=== PATIENT | male | born 1960 | race Caucasian/White ===

== ENCOUNTER 2019-08-02 10:30 | Outpatient (CLI) | payer OTHER, SELFPAY ==
[2019-08-02 11:28] LABS: Alanine Aminotransferase 60 U/L (4-50); Albumin Level 4.8 g/dL (3.5-5.1); Alkaline Phosphatase 81 U/L (38-126); Aspartate Amino Transferase 44 U/L (17-59); Bilirubin,Total 0.6 mg/dL (0.2-1.3); Blood Urea Nitrogen 10 mg/dL (9-20); Calcium 9.4 mg/dL (8.4-10.2); Carbon Dioxide 28 mmol/L (22-30); Chloride 103 mmol/L (98-107); Cholesterol 176 mg/dL (0-200); Estimated Glomerular Filt Rate > 60; Glucose 106 mg/dL (75-110); HDL Direct 46 mg/dL; Potassium 4.1 mmol/L (3.4-5.0); Sodium 138 mmol/L (137-145); Triglycerides 145 mg/dL (<150)
[2019-08-02 11:39] LABS: LDL Cholesterol Direct 106 mg/dL
== END 2019-08-02 10:31 | disposition home or self-care (01) ==
PROVIDERS: PCP Internal Medicine; Visit Provider Internal Medicine Cardiovascular Disease
DX: E78.5 Hyperlipidemia, unspecified (principal)
CPT/HCPCS: 36415; 80053; 80061

== ENCOUNTER 2020-01-25 07:24 | Outpatient (RCR) | payer OTHER, SELFPAY ==
[2019-11-09 12:40] VITALS: BMI 31.4
== END 2020-02-07 23:59 | disposition home or self-care (01) ==
LOC: ANHWOC 07:24
PROVIDERS: PCP Internal Medicine; Visit Provider Internal Medicine
DX: L97.512 Non-pressure chronic ulcer of other part of right foot with fat layer exposed (principal)
CPT/HCPCS: 99201; 99211; 99212; 99213; G0463

== ENCOUNTER 2020-04-03 07:22 | Outpatient (RCR) | payer OTHER, SELFPAY | END 2020-06-03 08:22 | disposition home or self-care (01) | LOC: ANHWOC 07:22 | PROVIDERS: PCP Internal Medicine; Visit Provider Internal Medicine | DX: E11.621 Type 2 diabetes mellitus with foot ulcer (principal); L97.512 Non-pressure chronic ulcer of other part of right foot with fat layer exposed | CPT/HCPCS: 99211; G0463 ==

== ENCOUNTER 2020-04-03 13:35 | Outpatient (CLI) | payer OTHER, SELFPAY ==
[2020-04-03 14:24] LABS: Basophils Absolute Auto 0.1 K/mm3 (0.0-0.1); Basophils Percent Auto 0.9 % (0.2-1.2); Eosinophils Absolute Auto 0.1 K/mm3 (0-0.3); Eosinophils Percent Auto 1.5 % (0-4.4); Hematocrit 45.7 % (42.0-52.0); Hemoglobin 15.1 g/dL (14.0-18.0); Immature Granulocyte Absolute 0.06 K/mm3 (0.00-0.031); Immature Granulocyte Percent A 0.7 % (0-0.5); Lymphocytes Absolute Auto 1.29 K/mm3 (0.9-3.2); Mean Corpuscular Hemoglobin 30.1 pg (26-34); Mean Platelet Volume 10.5 fl (7.4-10.4); Monocytes Absolute Auto 0.8 K/mm3 (0.1-0.6); Monocytes Percent Auto 9.7 % (2.6-8.5); Neutrophils Absolute Auto 5.8 K/mm3 (1.3-6.7); Neutrophils Percent Auto 71.2 % (45.5-73.1); Platelet Count Result 235 k/mm3 (150-375); Red Blood Count 5.02 M/mm3 (4.6-6.20); White Blood Count 8.1 K/mm3 (4.5-10.0)
[2020-04-03 14:36] LABS: Creatinine Urine 91.7 mg/dL
[2020-04-03 14:37] LABS: Potassium 3.9 mmol/L (3.4-5.0)
[2020-04-03 14:44] LABS: Alanine Aminotransferase 47 U/L (4-50); Albumin Level 4.5 g/dL (3.5-5.1); Alkaline Phosphatase 75 U/L (38-126); Anion Gap 8 mmol/L (8-16); Aspartate Amino Transferase 38 U/L (17-59); Bilirubin,Total 0.5 mg/dL (0.2-1.3); Blood Urea Nitrogen 12 mg/dL (9-20); Carbon Dioxide 29 mmol/L (22-30); Chloride 103 mmol/L (98-107); Cholesterol 161 mg/dL (0-200); Estimated Glomerular Filt Rate > 60; Glucose 125 mg/dL (75-110); HDL Direct 35 mg/dL; Sodium 140 mmol/L (137-145); Triglycerides 367 mg/dL (<150)
[2020-04-03 14:49] LABS: LDL Cholesterol Direct 82 mg/dL
[2020-04-03 14:57] LABS: MALB Creatinine Ratio < 6.5 mg/g (0-30); Microalbumin Urine Random < 6.0 mg/L (0-16.7)
[2020-04-03 15:10] LABS: Prostate Specific Antigen 0.5 ng/mL (< OR = 4.0)
[2020-04-03 15:44] LABS: Folic Acid 11.7 ng/mL (2.76->20)
[2020-04-03 15:51] LABS: Vitamin D 25 Hydroxy < 12.8 ng/mL
== END 2020-04-03 13:36 | disposition home or self-care (01) ==
PROVIDERS: PCP Internal Medicine; Visit Provider Internal Medicine
DX: E78.5 Hyperlipidemia, unspecified (principal); F41.9 Anxiety disorder, unspecified; G62.9 Polyneuropathy, unspecified; I10 Essential (primary) hypertension; I48.0 Paroxysmal atrial fibrillation; R73.01 Impaired fasting glucose; Z79.899 Other long term (current) drug therapy; Z12.5 Encounter for screening for malignant neoplasm of prostate
CPT/HCPCS: 36415; 80053; 80061; 82043; 82306; 82607; 82746; 83036; 84153; 84443; 85025; G0103

== ENCOUNTER 2020-04-18 11:40 | Outpatient (CLI) | payer OTHER, SELFPAY | END 2020-04-18 11:41 | disposition home or self-care (01) | LOC: ANHCOVIDVC 11:41 | PROVIDERS: PCP Internal Medicine | DX: Z23 Encounter for immunization (principal) | CPT/HCPCS: 0001A; 91300 ==

== ENCOUNTER 2020-05-09 11:35 | Outpatient (CLI) | payer OTHER, SELFPAY | END 2020-05-09 11:36 | disposition home or self-care (01) | LOC: ANHCOVIDVC 11:35 | PROVIDERS: PCP Internal Medicine | DX: Z23 Encounter for immunization (principal) | CPT/HCPCS: 0002A; 91300 ==

== ENCOUNTER 2020-08-30 13:03 | Outpatient (CLI) | payer OTHER, SELFPAY ==
[2020-08-30 13:38] LABS: Alanine Aminotransferase 32 U/L (4-50); Albumin Level 4.3 g/dL (3.5-5.1); Alkaline Phosphatase 81 U/L (38-126); Anion Gap 8 mmol/L (8-16); Aspartate Amino Transferase 29 U/L (17-59); Bilirubin,Total 0.9 mg/dL (0.2-1.3); Blood Urea Nitrogen 12 mg/dL (9-20); Calcium 9.3 mg/dL (8.4-10.2); Carbon Dioxide 30 mmol/L (22-30); Chloride 100 mmol/L (98-107); Cholesterol 159 mg/dL (0-200); Estimated Glomerular Filt Rate > 60; Glucose 113 mg/dL (75-110); HDL Direct 39 mg/dL; Potassium 3.8 mmol/L (3.4-5.0); Sodium 138 mmol/L (137-145); Triglycerides 159 mg/dL (<150)
[2020-08-30 13:48] LABS: LDL Cholesterol Direct 81 mg/dL
[2020-08-30 14:05] LABS: Creatinine Urine 80.2 mg/dL
[2020-08-30 14:10] LABS: MALB Creatinine Ratio < 7.5 mg/g (0-30); Microalbumin Urine Random < 6.0 mg/L (0-16.7)
== END 2020-08-30 13:04 | disposition home or self-care (01) ==
LOC: ANHLAB 13:05
PROVIDERS: PCP Internal Medicine; Visit Provider Internal Medicine
DX: E78.2 Mixed hyperlipidemia (principal); I10 Essential (primary) hypertension; R73.01 Impaired fasting glucose
CPT/HCPCS: 36415; 80053; 80061; 82043; 83036

== ENCOUNTER 2020-10-25 07:18 | Outpatient (RCR) | payer OTHER, SELFPAY ==
[2020-10-11 12:00] VITALS: BMI 31.3
== END 2020-12-18 13:43 | disposition home or self-care (01) ==
LOC: ANHWOC 07:18
PROVIDERS: PCP Internal Medicine; Visit Provider Internal Medicine
DX: L89.90 Pressure ulcer of unspecified site, unspecified stage (principal)
CPT/HCPCS: 99212; 99213; A9270; G0463

== ENCOUNTER 2020-12-02 12:01 | Outpatient (CLI) | payer OTHER, SELFPAY ==
[2020-12-02 12:26] LABS: Basophils Percent Auto 0.6 % (0.2-1.2); Eosinophils Absolute Auto 0.1 K/mm3 (0-0.3); Hemoglobin 14.4 g/dL (14.0-18.0); Immature Granulocyte Absolute 0.03 K/mm3 (0.00-0.031); Immature Granulocyte Percent A 0.4 % (0-0.5); Lymphocytes Absolute Auto 1.28 K/mm3 (0.9-3.2); Lymphocytes Percent Auto 18.2 % (18.3-44.2); Mean Corpuscular HGB Conc 32.7 g/dl (32-36); Mean Corpuscular Hemoglobin 29.6 pg (26-34); Mean Corpuscular Volume 90.5 fl (80-100); Mean Platelet Volume 10.3 fl (7.4-10.4); Monocytes Absolute Auto 0.8 K/mm3 (0.1-0.6); Monocytes Percent Auto 10.7 % (2.6-8.5); Neutrophils Absolute Auto 4.8 K/mm3 (1.3-6.7); Neutrophils Percent Auto 68.1 % (45.5-73.1); Platelet Count Result 226 k/mm3 (150-375); Red Blood Count 4.86 M/mm3 (4.6-6.20); Red Cell Distribution Width 12.2 % (11.5-14.5)
[2020-12-02 13:25] LABS: Erythrocyte Sedimentation Rate 17 mm/hr (0-20)
== END 2020-12-02 12:02 | disposition home or self-care (01) ==
LOC: ANHLAB 12:02
PROVIDERS: PCP Internal Medicine; Visit Provider Podiatrist Foot & Ankle Surgery
DX: L03.032 Cellulitis of left toe (principal)
CPT/HCPCS: 36415; 85025; 85652

== ENCOUNTER 2021-01-09 18:06 | Observation (INO) | payer OTHER, SELFPAY ==
--- NOTE | ~2021-01-09 | XR_ITS ---
XR foot RT min 3V 01/09/2021 18:37 Indication: Wound to middle of the bottom of the right foot Procedure: 4 views right foot Comparison: 02/10/2018 Findings: There is severe deformity of the right midfoot with chronic fracture deformities and disloc ation of the first, second and third metatarsals. There is are extensive surgical changes consistent with fusion of the midfoot and proximal first, second and third metatarsals. Mild plantar soft tissue swelling. No foreign bodies. There is rocker-bottom foot. No acute fracture or traumatic malalignmen t is identified. There are degenerative calcaneal enthesophytes. Impression: 1: Severe chronic deformity of the right midfoot as well as the first, second and third metatarsals s tatus post surgical fusion. Reviewed, dictated and finalized at location A. ICULTURAL AGENT Impression: 1: Severe chronic deformity of the right midfoot as well as the first, second a nd third metatarsals status post surgical fusion.
--- NOTE | ~2021-01-09 | CT_ITS ---
EXAMINATION: CT foot RT wo con DATE: 01/10/2021 11:06 INDICATION: Cellulitis at the right foot with wound at the plantar aspect of the mid right foot TECHNIQUE: High resolution computed tomography (CT) of the right foot was performed without intraveno us contrast. Additional sagittal and coronal reconstructions were performed. Automated exposure contr ol and iterative reconstruction technique were employed. The dose-length product was 376.75 mGy-cm. COMPARISON: Radiographs dated 01/09/2021 FINDINGS: Chronic healed fracture deformities at the diaphyses of the second and third metatarsals with exubera nt callus formation and solid osseous bridging between the 2 fractures. No acute fractures. Failed multiple joint midfoot arthrodesis with dorsal plate and screw fixation spanning the first, se cond, third and fourth tarsal metatarsal joints. There are fractured screws at each of the plain scre w fixations. This involves the proximal most screw of the first tarsal metatarsal fixation which has backed out, the 2 more distal screws at the base of the second metatarsal for the second tarsal metat arsal fixation, the proximal and distal screws at the third tarsal metatarsal fixation and the distal and 2 proximal screws at the fourth tarsal metatarsal fixation. Each of the tarsal metatarsal joints remains unfused. There does appear to be solid osseous fusion between the medial and mid cuneiforms. There is a blisterlike likely fluid collection at the skin surface at the plantar aspect of the midfo ot deep to the cuboid which measures 3.0 x 4.3 x 0.8 cm in maximal dimensions. The collection remains separate from the cuboid by approximately 9 mm of soft tissue with an intact appearing superficial f ascial plane of the plantar aponeurosis. No acute appearing cortical erosion, osteolysis or increased lucency surrounding the screw fragments to suggest osteomyelitis. No soft tissue gas to suggest necr otizing fasciitis. Mild polyarticular osteoarthritis at the majority of the joints of the right foot and ankle not involved with the attempted arthrodesis. Heterotopic ossification at the course of the anterior talofibular and calcaneofibular ligaments as well as the deltoid ligament likely sequela of chronic ankle sprains. IMPRESSION: 1. 2.0 x 4.3 x 0.8 cm superficial blisterlike fluid collection at the plantar aspect of the midfoot. No evident associated osteomyelitis. 2. Failed attempted midfoot arthrodesis with fracture of fixation screws associated with faint screw fixations across the still ununited first-fourth tarsal metatarsal joints. Reviewed, dictated and finalized at location A. [employer] IMPRESSION: 1. 2.0 x 4.3 x 0.8 cm superficial blisterlike fluid collection at the plantar a spect of the midfoot. No evident associated osteomyelitis. 2. Failed attempted midfoot arthrodesis with fracture of fixation screws associ ated with faint screw fixations across the still ununited first-fourth tarsal m etatarsal joints.
[2021-01-09 18:17] VITALS: BP 147/94; PULSE 88; RESP 18; TEMP 36.8; O2SAT 100
[2021-01-09 19:06] LABS: Basophils Percent Auto 0.4 % (0.2-1.2); Hematocrit 43.1 % (42.0-52.0); Hemoglobin 14.3 g/dL (14.0-18.0); Immature Granulocyte Absolute 0.05 K/mm3 (0.00-0.031); Immature Granulocyte Percent A 0.4 % (0-0.5); Lymphocytes Absolute Auto 0.61 K/mm3 (0.9-3.2); Lymphocytes Percent Auto 5.5 % (18.3-44.2); Mean Corpuscular HGB Conc 33.2 g/dl (32-36); Mean Corpuscular Hemoglobin 30.2 pg (26-34); Mean Corpuscular Volume 90.9 fl (80-100); Mean Platelet Volume 10.7 fl (7.4-10.4); Monocytes Percent Auto 9.2 % (2.6-8.5); Neutrophils Absolute Auto 9.4 K/mm3 (1.3-6.7); Neutrophils Percent Auto 84.5 % (45.5-73.1); Platelet Count Result 195 k/mm3 (150-375); Red Blood Count 4.74 M/mm3 (4.6-6.20); Red Cell Distribution Width 12.5 % (11.5-14.5); White Blood Count 11.1 K/mm3 (4.5-10.0)
[2021-01-09 19:17] LABS: INR 1.1; Lactic Acid Reflex 1.7 mmol/L (0.7-2.1)
[2021-01-09 19:18] LABS: Partial Thromboplastin Time 36.6 SECONDS (22.3-36.8)
[2021-01-09 19:19] LABS: Alanine Aminotransferase 32 U/L (4-50); Albumin Level 4.6 g/dL (3.5-5.1); Alkaline Phosphatase 89 U/L (38-126); Anion Gap 10 mmol/L (8-16); Aspartate Amino Transferase 46 U/L (17-59); Bilirubin,Total 1.5 mg/dL (0.2-1.3); Blood Urea Nitrogen 11 mg/dL (9-20); CRP 3.6 mg/dL (<1.0); Calcium 9.1 mg/dL (8.4-10.2); Carbon Dioxide 23 mmol/L (22-30); Chloride 101 mmol/L (98-107); Estimated CRCL calculation 147 ml/min; Estimated Glomerular Filt Rate > 60; Glucose 132 mg/dL (65-110); Potassium 4.1 mmol/L (3.4-5.0); Sodium 134 mmol/L (137-145)
--- NOTE | 2021-01-09 19:33 | ED.GENADULT ---
HPI - General Adult General Chief complaint: Wound/Laceration Stated complaint: wound on foot Time Seen by Provider: 01/09/21 18:12 Source: RN notes reviewed History of Present Illness HPI narrative: Patient presents emergency department from home for right foot wound. Patient states that he began to notice the wound yesterday and progressed today no swelling on the plantar aspect of the foot with erythema extending up the side of the foot towards the ankle but he states that foot has had surgery in the past at [facility] he denies any known trauma or injury states he did have subjective fevers yesterday and today denies any nausea vomiting or any other symptoms Related Data Home Medications Medication Instructions Recorded Confirmed aspirin 325 mg tablet 325 mg PO DAILY 05/16/19 10/11/20 oxycodone-acetaminophen 5 mg-325 1 tablet PO Q6H PRN 08/02/19 10/11/20 mg tablet gabapentin 400 mg capsule 600 mg PO TID PRN cap 07/16/20 10/11/20 multivitamin 1 tablet PO DAILY 07/16/20 10/11/20 naldemedine [Symproic] mg 01/09/21 Allergies Allergy/AdvReac Type Severity Reaction Status Date / Time No Known Allergies Verified 01/09/21 18:25 Review of Systems Review of Systems: Gen.: See HPI ENT: Denies congestion Respiratory: Denies shortness of breath or cough CV: Denies chest pain or palpitations GI: Denies abdominal pain nausea, emesis Musculoskeletal: Reports right foot pain Neuro: Denies numbness, tingling, weakness or focal weakness Skin: See HPI Except as documented, all other systems reviewed and negative COUNT INCLUDES THE [facility] Past Medical History Medical History (Updated 01/09/21 @ 20:28 by David Lei DO) Charcot's joint of right foot, non-diabetic Dyslipidemia Family History Family History Sibling Diabetes mellitus Family history of Alzheimer's disease, Onset Age: 60 Mother Patient's mother is , Onset Age: 53 Family history of lymphoma Social History Social History Second hand tobacco smoke exposure: No Alcohol intake: never Gender identity (if verbalized by the patient): Male Exam Narrative: APPEARANCE: No acute distress, nontoxic, resting in bed EYES: EOMI HEENT: Normocephalic, atraumatic, OMM RESPIRATORY: No respiratory distress Clear to auscultation bilaterally with no rhonchi wheezing or rales. CARDIOVASCULAR: Regular rate and rhythm without murmurs rubs or gallops. ABDOMINAL: Soft, nontender, nondistended, no rebound or guarding MUSCULOSKELETAl: Moves all extremities. No clubbing, cyanosis right foot with Charcot deformity there is a circular wound over the base of the foot that is tender with mild fluctuance no drainage with erythema extending from the base of the foot up into the medial foot to the ankle dorsalis pedis pulse 2+ neurovascular intact NEURO: Awake and alert. Following commands, speech normal, no focal deficits SKIN:: Warm, dry. No rashes lesions or abrasions PSYCHIATRIC: Normal affect/mood, Course Course Emergency Course: Discussed with Dr. Arvizu presentation work-up agrees with consult at this time Discussed with Dr. Monique presentation work-up agrees with admission Discussed with patient and family results of workup and diagnosis. Discussed need for admission. Patient and family understand and agree to current treatment plan Vital Signs Vital signs: Vital Signs Temperature 98.2 F 01/09/21 18:17 Pulse Rate 88 01/09/21 18:17 Respiratory Rate 18 01/09/21 18:17 Blood Pressure 147/94 H 01/09/21 18:17 Pulse Oximetry 100 01/09/21 18:17 Temperature 98.2 F 01/09/21 18:17 Pulse Rate 88 01/09/21 18:17 Respiratory Rate 18 01/09/21 18:17 Blood Pressure 147/94 H 01/09/21 18:17 Pulse Oximetry 100 01/09/21 18:17 Medical Decision Making Vital Signs Vital Signs: Vital Signs Temperature 98.2 F
[2021-01-09 19:39] LABS: Erythrocyte Sedimentation Rate 18 mm/hr (0-20)
[2021-01-09 20:50] VITALS: BP 146/74; PULSE 74; RESP 16; O2SAT 99
--- NOTE | 2021-01-09 21:00 | ADMGEN ---
This patient, Richi Gunderson, was admitted to Medical Room 340-01. Patient/family oriented to hospital policies and general routines including ID bracelet, bed and alarms, visiting hours, pain management, procedures, bathroom and other care routines, personal items, smoking policy, room service/diet, and visiting hours. Information on how to activate the Rapid Response Team has been discussed. Patient/Family are encouraged to report perceived risks to care and to ask questions if they do not understand what they are told or what they should do.
[2021-01-09 21:09] VITALS: BP 168/91; PULSE 72; RESP 17; TEMP 36.6; O2SAT 99
[2021-01-09] MEDS: SODIUM CHLORIDE 0.9% IV 1,000 ML 125 ML IV CONT (21:09)
[2021-01-09 21:10] VITALS: BMI 31.4
[2021-01-09 21:12] VITALS: BP 168/71; PULSE 72; RESP 17; TEMP 36.6; O2SAT 99
[2021-01-09 21:38] VITALS: PULSE 70; O2SAT 99
--- NOTE | 2021-01-09 22:04 | PM.IMHP ---
H&P: HPI History of Present Illness Date/Time: 01/09/21 22:04 Chief Complaint: Right foot swelling Narrative: This is a 60-year-old male with past medical history significant for Charcot neuropathy, alcohol abuse patient has been sober for over a year now, dyslipidemia, hypertension, peripheral neuropathy. Patient presented to emergency room due to right foot swelling, redness patient denies any pain due to his neuropathy but did feel some discomfort, this was 1st started on Wednesday and has progressively gotten worse over the course or through the last 48 hours, no discharge or wounds or foul smell. Denies any fevers, any rigors, any chills, his also have poor appetite for the last day or so has not been able to eat anything. He denies any cough, any sputum production, shortness of breath, nausea, vomiting or diarrhea or abdominal pain, no calf pain ,no shortness of breath ,no PND ,no orthopnea. Preliminary workup was significant for x-ray of the foot reported as severe chronic deformity of the right midfoot as well as the first, second and third metatarsals status post surgical fusion. Decision has been made to admit the patient for further evaluation, management and treatment. Review of Systems Review of Systems: Right foot swelling, redness, of 2 days duration that has progressively gotten worse. Constitutional: Constitutional: Denies chills, Denies fatigue, Denies fever(s), Denies frequent falls, Denies lethargy, Denies malaise, Reports poor appetite and Denies weakness Eyes: Eyes: Denies change in vision ENT: Denies dysphagia, Denies vertigo, Denies dizziness, Denies nasal congestion, Denies nasal discharge, Denies nasal obstruction and Denies odynophagia Cardiovascular: Cardiovascular: Denies irregular heart rhythm, Denies claudication, Denies lightheadedness, Denies radiating jaw, neck or arm pain, Denies palpitations, Denies dyspnea, Denies dyspnea on exertion and Denies orthopnea Respiratory: Respiratory: Denies cough, Denies excessive phlegm production, Denies dyspnea, Denies dyspnea on exertion and Denies wheezing Gastrointestinal: Gastrointestinal: Denies abdominal pain, Denies dyspepsia, Denies heartburn, Denies nausea and Denies vomiting Genitourinary: Genitourinary: Reports no additional male genitourinary complaints, Reports as per HPI and Denies dysuria Musculoskeletal: Comments: Right foot swelling and redness Integumentary/Breasts: Skin/Breast: Reports swelling, Reports change in pigmentation, Denies rash and Reports skin swelling Neurologic: Denies vertigo, Denies syncope, Denies frequent falls, Denies focal weakness, Denies Sensory deficit (Neuro) and Reports paresthesias Psychiatric: Psychiatric: Reports no additional psychiatric complaints and Reports as per HPI Endocrine: Endocrine: Reports no additional endocrine complaints and Reports as per HPI Hematologic/Lymphatic: Hematologic/Lymphatic: Reports no additional hematologic/lymphatic complaints and Reports as per HPI Allergic/Immunologic: Allergic/Immunologic: Reports no additional allergic/immunologic complaints and Reports as per HPI PMFSH Past Medical History Medical History (Updated 01/09/21 @ 20:28 by David Lei DO) Charcot's joint of right foot, non-diabetic Dyslipidemia Family History Family History Sibling Diabetes mellitus Family history of Alzheimer's disease, Onset Age: 60 Mother Patient's mother is , Onset Age: 53 Family history of lymphoma Social History Social History Smoking status: Never smoker Second hand tobacco smoke exposure: No Alcohol intake: former Substance use: never Gender identity (if verbalized by the patient): Male Spiritual care concerns: No Meds Home Medications and Allergies Home Medications Medication Instructions Recorded Confirmed Type aspirin 325 mg tablet 325
[2021-01-09] MEDS: ZOLPIDEM TARTRATE (*CRX) 5 MG TABLET 10 MG PO (23:08)
[2021-01-09] MEDS: oxyCODONE/ACETAMINOPHEN (*CRX) 5-325 MG TABLET 1 TABLET PO (23:11)
[2021-01-10 00:20] VITALS: RESP 16; O2SAT 99
[2021-01-10 02:20] VITALS: RESP 18; O2SAT 98
[2021-01-10 03:47] VITALS: BP 133/88; PULSE 70; RESP 16; TEMP 36.4; O2SAT 99
[2021-01-10 06:27] LABS: Basophils Percent Auto 0.5 % (0.2-1.2); Eosinophils Absolute Auto 0.1 K/mm3 (0-0.3); Eosinophils Percent Auto 0.6 % (0-4.4); Hemoglobin 13.4 g/dL (14.0-18.0); Immature Granulocyte Absolute 0.03 K/mm3 (0.00-0.031); Immature Granulocyte Percent A 0.3 % (0-0.5); Lymphocytes Absolute Auto 1.15 K/mm3 (0.9-3.2); Mean Corpuscular HGB Conc 32.7 g/dl (32-36); Mean Corpuscular Hemoglobin 29.6 pg (26-34); Mean Corpuscular Volume 90.5 fl (80-100); Mean Platelet Volume 10.7 fl (7.4-10.4); Monocytes Percent Auto 11.8 % (2.6-8.5); Neutrophils Absolute Auto 6.5 K/mm3 (1.3-6.7); Neutrophils Percent Auto 73.8 % (45.5-73.1); Platelet Count Result 189 k/mm3 (150-375); Red Blood Count 4.53 M/mm3 (4.6-6.20); Red Cell Distribution Width 12.7 % (11.5-14.5); White Blood Count 8.9 K/mm3 (4.5-10.0)
[2021-01-10 06:39] LABS: Anion Gap 7 mmol/L (8-16); Blood Urea Nitrogen 9 mg/dL (9-20); Carbon Dioxide 28 mmol/L (22-30); Chloride 104 mmol/L (98-107); Estimated CRCL calculation 125 ml/min; Estimated Glomerular Filt Rate > 60; Glucose 115 mg/dL (65-110); Potassium 3.7 mmol/L (3.4-5.0); Sodium 139 mmol/L (137-145)
[2021-01-10 09:55] VITALS: PULSE 86
[2021-01-10] MEDS: METOPROLOL SUCCINATE EXT REL 25 MG TABCR PO (09:55)
[2021-01-10] MEDS: MULTIVITAMINS THERAPEUTIC TAB (*BKC) 1 TABLET PO (09:55)
[2021-01-10] MEDS: ENOXAPARIN 40 MG/0.4 ML SYRINGE SUB-Q (09:55)
[2021-01-10] MEDS: ROSUVASTATIN 10 MG TABLET 20 MG PO (09:55)
--- NOTE | 2021-01-10 10:09 | PM.IMPN ---
Progress Note: A&P Assessment and Plan (1) Cellulitis of foot, right: Code(s): L03.115 - Cellulitis of right lower limb Status: Acute Assessment and Plan: Patient is a 60-year-old man with a history of Charcot foot with neuropathy, who presented to the emergency room with increased redness, swelling and pain to his right foot which began evening of the . He developed symptoms of fevers and chills decided to come to the emergency room for further evaluation. Initial vitals showed blood pressure 147/94, heart rate 88, afebrile, normal oxygenation on room air. Initial labs showed leukocytosis at 11,100, with elevated neutrophils at 84%. Normal coag panel. Slight hyponatremia at 134. Renal function 0.6, BUN 11, slight elevation of glucose at 132. Normal lactic acid. CRP elevated 3.6. Foot x-ray was obtained showing Severe chronic deformity of the right midfoot as well as the first, second and third metatarsals status post surgical fusion. The patient was admitted with cellulitis of right foot and started on broad-spectrum antibiotics which included IV Zosyn and vancomycin #1 Patient has noticed improvement of his symptoms, but still having warmth and erythema Surgery was consulted and appreciate their input CT foot was ordered and pending results Blood cultures pending at this time Continue with IV antibiotics, pain control, and fever control as needed (2) Charcot's joint of right foot, non-diabetic: Code(s): M14.671 - Charcot's joint, right ankle and foot Status: Acute Assessment and Plan: Follow-up with Podiatry in the outpatient setting, he sees 1 already and was just there on Wednesday01/06/2021 prior to symptoms starting (3) SANDRA on CPAP: Code(s): G47.33 - Obstructive sleep apnea (adult) (pediatric); Z99.89 - Dependence on other enabling machines and devices Status: Acute Assessment and Plan: CPAP at nighttime (4) Paroxysmal atrial fibrillation: Code(s): I48.0 - Paroxysmal atrial fibrillation Status: Acute Assessment and Plan: In NSR at this time. Continue Metoprolol and Full Dose Aspirin which he takes at home. (5) Dyslipidemia: Code(s): E78.5 - Hyperlipidemia, unspecified Status: Acute Assessment and Plan: Continue statin Time Spent With Patient Time with patient: 25 - 35 minutes Subjective Date/time seen: 01/10/21 10:09 Interval history: Date of Service 01/10/21: The patient does report improvement from yesterday with his redness and swelling of his right foot. He does not have much pain given his neuropathy. Denies any more fevers or chills at this time. He otherwise is getting over a cold with a sore throat. Denies cough, shortness of breath, chest pain, nausea, vomiting, abdominal pain, calf pain, leg swelling, or any other symptoms at this time. Review of Systems Review of Systems: All systems reviewed & are unremarkable except as noted in HPI and below Exam Narrative: General: 60-year-old man sitting up in bed watching TV. Appears comfortable. In no acute distress. Skin: No jaundice or cyanosis. Good skin turgor. Neck: Full range of motion. Supple. Respiratory: Lungs are clear to auscultation bilaterally. No bony chest wall tenderness. Cardiovascular: The heart has a regular rate and rhythm without murmur. Lower extremities: Right Charot foot deformity and post surgical changes to his dorsum of foot which is well healed. Callus noted to plantar aspect of foot without any signs of drainage. Surrounding erythema from lateral mid foot to plantar mid foot with associated warmth and mild edema. No wounds noted. No lower extremity edema. Distal pulses are easily palpated. No calf tenderness to palpation. Gastrointestinal: The abdomen is soft, nontender and nondistended with active bowel sounds. Psychiatric: Lucid and oriented. Memory intact. Neurologic: No focal deficits. Speec
--- NOTE | 2021-01-10 10:24 | PM.CNGS ---
Assessment and Plan Assessment and plan (1) Cellulitis of foot, right: Code(s): L03.115 - Cellulitis of right lower limb Status: Acute Assessment and Plan: exam benign and improved, continue antibiotics and serial exams, no acute surgical indications at this time, CT of the foot ordered for further evaluation (2) Charcot's joint of right foot, non-diabetic: Code(s): M14.671 - Charcot's joint, right ankle and foot Status: Acute Assessment and Plan: status post fusion, will need follow-up with Podiatry (3) Obesity (BMI 30-39.9): Code(s): E66.9 - Obesity, unspecified Status: Acute Assessment and Plan: dietary and lifestyle modifications History of Present Illness Consult details Consult date: 01/10/21 Reason for consult: wound care Requesting physician: David Lei DO Narrative: The patient is a 60-year-old male with multiple medical issues, including neuropathy, presenting with worsening right foot swelling, cellulitis. The patient reports that he has had a deformity in this foot for quite a while and had a fusion previously in [place]. The patient reports since that surgery he has had issues with the foot, including a severe deformity. The patient reports that on Wednesday he began to notice some skin changes in the plantar surface of the foot. He reports over the next 48 hours, there was diffuse redness and swelling in the foot going up to his ankle. The patient denies any systemic symptoms of fevers or chills, but does report some poor appetite over the last day or so. Review of Systems Constitutional: Constitutional: Denies anorexia, Denies fatigue, Denies fever(s), Denies lethargy, Reports poor appetite, Denies weakness, Denies weight gain and Denies weight loss Eyes: Eyes: Reports no additional eye complaints ENT: Reports system reviewed and no additional complaints, except as documented Cardiovascular: Cardiovascular: Reports no additional cardiovascular complaints Respiratory: Respiratory: Reports no additional respiratory complaints Gastrointestinal: Gastrointestinal: Reports no additional gastrointestinal complaints Genitourinary: Genitourinary: Reports no additional male genitourinary complaints Musculoskeletal: Musculoskeletal: Reports as per HPI, Reports abnormal gait, Reports deformity, Reports joint swelling, Reports numbness, Reports stiffness and Reports tingling Integumentary/Breasts: Skin/Breast: Reports as per HPI, Reports swelling, Reports change in pigmentation and Reports erythema Neurologic: Reports system reviewed and no additional complaints, except as documented Psychiatric: Psychiatric: Reports no additional psychiatric complaints Endocrine: Endocrine: Reports no additional endocrine complaints Hematologic/Lymphatic: Hematologic/Lymphatic: Reports no additional hematologic/lymphatic complaints Allergic/Immunologic: Allergic/Immunologic: Reports no additional allergic/immunologic complaints PMFSH Past Medical History Medical History Charcot's joint of right foot, non-diabetic Dyslipidemia Family History Family History Sibling Diabetes mellitus Family history of Alzheimer's disease, Onset Age: 60 Mother Patient's mother is , Onset Age: 53 Family history of lymphoma Social History Social History Smoking status: Never smoker Second hand tobacco smoke exposure: No Alcohol intake: former Substance use: never Gender identity (if verbalized by the patient): Male Spiritual care concerns: No Meds Home Medications and Allergies Home Medications Medication Instructions Recorded Confirmed Type aspirin 325 mg tablet 325 mg PO DAILY 05/16/19 01/09/21 History oxycodone-acetaminophen 5 mg-325 1 tablet PO Q6H PRN 08/02/19 01/09/21 History m
[2021-01-10] MEDS: LOSARTAN POTASSIUM 25 MG TABLET PO (10:48)
[2021-01-10 15:19] VITALS: BP 137/75; PULSE 75; RESP 18; TEMP 36.3; O2SAT 97
[2021-01-10 19:27] VITALS: BP 132/82; PULSE 67; RESP 20; TEMP 37.2; O2SAT 98
[2021-01-10] MEDS: oxyCODONE/ACETAMINOPHEN (*CRX) 5-325 MG TABLET 1 TABLET PO (23:26)
[2021-01-10] MEDS: ZOLPIDEM TARTRATE (*CRX) 5 MG TABLET 10 MG PO (23:26)
[2021-01-11 03:59] VITALS: BP 143/82; PULSE 66; RESP 20; TEMP 36.8; O2SAT 98
[2021-01-11 06:09] LABS: Basophils Absolute Auto 0.1 K/mm3 (0.0-0.1); Basophils Percent Auto 0.6 % (0.2-1.2); Eosinophils Absolute Auto 0.1 K/mm3 (0-0.3); Hemoglobin 13.4 g/dL (14.0-18.0); Immature Granulocyte Absolute 0.03 K/mm3 (0.00-0.031); Immature Granulocyte Percent A 0.4 % (0-0.5); Lymphocytes Absolute Auto 1.27 K/mm3 (0.9-3.2); Lymphocytes Percent Auto 16.1 % (18.3-44.2); Mean Corpuscular HGB Conc 32.7 g/dl (32-36); Mean Corpuscular Hemoglobin 30.1 pg (26-34); Mean Corpuscular Volume 92.1 fl (80-100); Mean Platelet Volume 10.8 fl (7.4-10.4); Monocytes Absolute Auto 0.9 K/mm3 (0.1-0.6); Monocytes Percent Auto 10.9 % (2.6-8.5); Neutrophils Absolute Auto 5.6 K/mm3 (1.3-6.7); Platelet Count Result 207 k/mm3 (150-375); Red Blood Count 4.45 M/mm3 (4.6-6.20); Red Cell Distribution Width 12.4 % (11.5-14.5); White Blood Count 7.9 K/mm3 (4.5-10.0)
[2021-01-11 06:18] LABS: Anion Gap 5 mmol/L (8-16); Blood Urea Nitrogen 7 mg/dL (9-20); Calcium 9.2 mg/dL (8.4-10.2); Carbon Dioxide 30 mmol/L (22-30); Chloride 101 mmol/L (98-107); Estimated CRCL calculation 111 ml/min; Estimated Glomerular Filt Rate > 60; Glucose 98 mg/dL (65-110); Potassium 3.5 mmol/L (3.4-5.0); Sodium 136 mmol/L (137-145)
[2021-01-11 06:21] LABS: Hemoglobin A1C 5.8 % (<5.7)
[2021-01-11 08:47] VITALS: PULSE 78
[2021-01-11] MEDS: ENOXAPARIN 40 MG/0.4 ML SYRINGE SUB-Q (08:47)
[2021-01-11] MEDS: METOPROLOL SUCCINATE EXT REL 25 MG TABCR PO (08:47)
[2021-01-11] MEDS: LOSARTAN POTASSIUM 25 MG TABLET PO (08:47)
[2021-01-11] MEDS: ROSUVASTATIN 10 MG TABLET 20 MG PO (08:47)
[2021-01-11] MEDS: MULTIVITAMINS THERAPEUTIC TAB (*BKC) 1 TABLET PO (08:47)
--- NOTE | 2021-01-11 10:44 | PM.DS ---
DS: Admitting Diagnosis Discharge Date 01/11/21 Admitting Diagnosis Redness to foot DS: Discharge Diagnosis Discharge Diagnosis (1) Cellulitis of foot, right: Code(s): L03.115 - Cellulitis of right lower limb Status: Acute Assessment and Plan: Patient is a 60-year-old man with a history of Charcot foot with neuropathy, who presented to the emergency room with increased redness, swelling and pain to his right foot which began evening of the . He developed symptoms of fevers and chills decided to come to the emergency room for further evaluation. Initial vitals showed blood pressure 147/94, heart rate 88, afebrile, normal oxygenation on room air. Initial labs showed leukocytosis at 11,100, with elevated neutrophils at 84%. Normal coag panel. Slight hyponatremia at 134. Renal function 0.6, BUN 11, slight elevation of glucose at 132. Normal lactic acid. CRP elevated 3.6. Foot x-ray was obtained showing Severe chronic deformity of the right midfoot as well as the first, second and third metatarsals status post surgical fusion. The patient was admitted with cellulitis of right foot and started on broad-spectrum antibiotics which included IV Zosyn and vancomycin #2 CT foot showed 2.0 x 4.3 x 0.8 cm superficial blisterlike fluid collection at the plantar aspect of the midfoot. No evident associated osteomyelitis. Patient has noticed improvement of his symptoms, with only mild warmth and erythema to the plantar aspect of foot today. No more fevers, chills, or pain. Surgery was consulted and talked to the Radiologist about his CT foot findings and does not think he needs surgery at this time. Recommend follow up with Podiatry Wednesday or Wednesday after discharge. He will call them Wednesday morning. Based on Antibiotic stewardship with being a non-DM, no chronic open venous stasis wounds and just being plain celluitis it recommends him being on Keflex. I discussed with Dr. Arvizu and he agrees with the plan and does not think he needs any broader spectrum of antibiotics at this time. Follow up instructions given. Return to ER warnings given. He understands and agrees with the plan. All questions answered. (2) Charcot's joint of right foot, non-diabetic: Code(s): M14.671 - Charcot's joint, right ankle and foot Status: Acute Assessment and Plan: Follow-up with Podiatry in the outpatient setting, he sees one already and was just there on Wednesday01/06/2021 prior to symptoms starting (3) SANDRA on CPAP: Code(s): G47.33 - Obstructive sleep apnea (adult) (pediatric); Z99.89 - Dependence on other enabling machines and devices Status: Acute Assessment and Plan: CPAP at nighttime (4) Paroxysmal atrial fibrillation: Code(s): I48.0 - Paroxysmal atrial fibrillation Status: Acute Assessment and Plan: In NSR at this time. Continue Metoprolol and Full Dose Aspirin which he takes at home. (5) Dyslipidemia: Code(s): E78.5 - Hyperlipidemia, unspecified Status: Acute Assessment and Plan: Continue statin DS: Summary Hospital Course Hospital Course: see above Status at Discharge Cognitive/behavioral status at discharge: Stable, improved. Time Spent with Patient Time attestation: Total time spent providing and/or coordinating discharge services: 40 Time spent: Greater than 30 minutes Exam Narrative: General: 60-year-old man sitting up in bed watching TV. Appears comfortable. In no acute distress. Skin: No jaundice or cyanosis. Good skin turgor. Neck: Full range of motion. Supple. Respiratory: Lungs are clear to auscultation bilaterally. No bony chest wall tenderness. Cardiovascular: The heart has a regular rate and rhythm without murmur. Lower extremities: Right Charot foot deformity and post surgical changes to his dorsum of foot which is well healed. Callus noted to plantar aspect of foot without any signs of drain
--- NOTE | 2021-01-11 11:47 | PM.PNGS ---
Progress Note: A&P Assessment and Plan (1) Cellulitis of foot, right: Code(s): L03.115 - Cellulitis of right lower limb Status: Acute Assessment and Plan: improved, cont abx, f/u c podiatry Subjective Subjective Date/Time Seen: 01/11/21 11:47 feels good, no acute issues, wants to go home Review of Systems Review of Systems: All systems reviewed & are unremarkable except as noted in HPI and below Exam Const: General: cooperative, comfortable and no acute distress Orientation/consciousness: patient oriented x3 Resp: Effort & Inspection: normal respiratory effort Auscultation: clear to auscultation bilaterally Cardio: Rate: regular rate Rhythm: regular rhythm GI: Inspection: normal to inspection GI Palp: Yes Soft to palpation and No Tenderness to palpation present (GI) Extrem: Other: R foot - decreased swelling, no further cellulitis noted, planter blister c no evidence of active infection, drainage Objective Data Vital Signs Vital Signs: Vital Signs - 24 hr 01/10/21 15:19 01/10/21 19:27 01/11/21 03:59 Temperature 36.3 C L 37.2 C 36.8 C Pulse Rate 75 67 66 Respiratory Rate 18 20 20 Blood Pressure 137/75 132/82 143/82 H Pulse Oximetry 97 98 98 01/11/21 08:47 Temperature Pulse Rate 78 Respiratory Rate Blood Pressure Pulse Oximetry Intake/Output Intake/Output: Intake & Output 01/08/21 01/09/21 01/10/21 01/11/21 23:59 23:59 23:59 23:59 Intake Total 50 2680 1450 Output Total 650 800 Balance 50 2030 650 Meds/Results Medications: Active Medications Generic Name Dose Route Start Last Admin Trade Name Freq PRN Reason Stop Dose Admin Enoxaparin Sodium 40 mg 01/10/21 09:00 01/11/21 08:47 Enoxaparin 40 Mg/0.4 Ml Syringe SUB-Q 40 mg DAILY BENITO Administration Gabapentin 600 mg 01/09/21 22:34 Gabapentin 300 Mg Capsule PO TID PRN Nerve Pain Piperacillin/Tazobactam/Dextrose 3.375 gm in 50 mls @ 100 mls/hr 01/10/21 01:00 01/11/21 05:46 Zosyn 3.375 Gm/D5w 50ml Pm IVPB Infused Q6HR BENITO Infusion Vancomycin HCl 1,750 mg in 500 mls @ 250 mls/hr 01/10/21 12:00 01/11/21 01:55 Vancomycin 1,750 Mg/D5w 500 Ml IVPB Infused Q12H BENITO Infusion Losartan Potassium 25 mg 01/10/21 09:00 01/11/21 08:47 Losartan Potassium 25 Mg Tablet PO 25 mg DAILY BENITO Administration Metoprolol Succinate 25 mg 01/10/21 09:00 01/11/21 08:47 Metoprolol Succinate Ext Rel 25 Mg Tabcr PO 25 mg DAILY BENITO Administration Multivitamins Therapeutic 1 tablet 01/10/21 09:00 01/11/21 08:47 Multivitamins Therapeutic Tab (*Bkc) PO 1 tablet DAILY BENITO Administration Non-Formulary Medication 0.2 mg 01/09/21 22:34 Naldemedine [Symproic] PO DAILY PRN Constipation Oxycodone/Acetaminophen 1 tablet 01/09/21 22:34 01/10/21 23:26 Oxycodone/Acetaminophen (*Crx) 5-325 Mg Tablet PO 1 tablet Q6H PRN Administration Pain Rated 7-10 Rosuvastatin Calcium 20 mg 01/10/21 09:00 01/11/21 08:47 Rosuvastatin 10 Mg Tablet PO 20 mg DAILY BENITO Administration Zolpidem Tartrate 10 mg 01/10/21 21:00 01/10/21 23:26 Zolpidem Tartrate (*Crx) 5 Mg Tablet PO 10 mg HS BENITO Administration Radiology Results: ITS Impressions Foot X-Ray 01/09/21 18:38 Impression: 1: Severe chronic deformity of the right midfoot as well as the first, second and third metatarsals status post surgical fusion. Foot CT 01/10/21 11:37 IMPRESSION: 1. 2.0 x 4.3 x 0.8 cm superficial blisterlike fluid collection at the plantar aspect of the midfoot. No evident associated osteomyelitis. 2. Failed attempted midfoot arthrodesis with fracture of fixation screws associated with faint screw fixations across the still ununited first-fourth tarsal metatarsal joints. Labs Labs: Laboratory Results - last 24 hr 01/11/21 01/11/21 01/11/21 05:13 05:13 05:13 WBC 7.9 RBC 4.45 L Hgb 13.4 L Hct 41.0 L MCV 92.1 MCH
== END 2021-01-11 12:00 | disposition home or self-care (01) ==
LOC: ANHED 20:28 → ANH3MED 20:34
PROVIDERS: Physician Assistant; Admitting Provider Internal Medicine; Emergency Provider Emergency Medicine; PCP Internal Medicine; Visit Provider Family Medicine
DX: L03.115 Cellulitis of right lower limb (principal); M14.671 Charcot's joint, right ankle and foot; G47.33 Obstructive sleep apnea (adult) (pediatric); M79.89 Other specified soft tissue disorders; E78.5 Hyperlipidemia, unspecified; I10 Essential (primary) hypertension; I48.0 Paroxysmal atrial fibrillation
CPT/HCPCS: 36415; 73630; 73700; 80048; 80053; 83036; 83605; 85025; 85610; 85652; 85730; 86140; 87040; 96361; 96365; 96366; 96367; 96372; 96375; 99285; A9270; G0378; J1650; J2543; J3370; J7030

== ENCOUNTER 2021-04-10 10:01 | Outpatient (CLI) | payer OTHER, SELFPAY ==
[2021-04-10 11:04] LABS: Vitamin D 25 Hydroxy 32.2 ng/mL
[2021-04-10 11:09] LABS: Creatinine Urine 88.1 mg/dL
[2021-04-10 11:15] LABS: Microalbumin Urine Random 8.8 mg/L (0-16.7)
[2021-04-10 12:10] LABS: Anion Gap 13 mmol/L (8-16); Blood Urea Nitrogen 11 mg/dL (9-20); Calcium 9.4 mg/dL (8.4-10.2); Carbon Dioxide 24 mmol/L (22-30); Chloride 104 mmol/L (98-107); Estimated Glomerular Filt Rate > 60; Glucose 119 mg/dL (65-110); Potassium 3.9 mmol/L (3.4-5.0); Sodium 141 mmol/L (137-145)
[2021-04-10 14:00] LABS: Prostate Specific Antigen 0.6 ng/mL (< OR = 4.0)
== END 2021-04-10 10:02 | disposition home or self-care (01) ==
LOC: ANHLAB 10:04
PROVIDERS: PCP Internal Medicine; Visit Provider Internal Medicine
DX: E55.9 Vitamin D deficiency, unspecified (principal); F32.A Depression, unspecified; I10 Essential (primary) hypertension; R73.01 Impaired fasting glucose; Z12.5 Encounter for screening for malignant neoplasm of prostate
CPT/HCPCS: 36415; 80048; 82043; 82306; 83036; 84153; G0103

== ENCOUNTER 2021-07-23 12:02 | Outpatient (CLI) | payer OTHER, SELFPAY ==
[2021-07-23 12:58] LABS: Creatinine Urine 84.9 mg/dL
[2021-07-23 13:06] LABS: MALB Creatinine Ratio < 7.1 mg/g (0-30); Microalbumin Urine Random < 6.0 mg/L (0-16.7)
== END 2021-07-23 12:03 | disposition home or self-care (01) ==
LOC: ANHLAB 12:03
PROVIDERS: PCP Internal Medicine; Visit Provider Internal Medicine
DX: R73.01 Impaired fasting glucose (principal); F32.A Depression, unspecified; I10 Essential (primary) hypertension
CPT/HCPCS: 36415; 82043; 83036; 84443

== ENCOUNTER 2022-07-15 08:25 | Outpatient (CLI) | payer OTHER, SELFPAY ==
[2022-07-15 09:06] LABS: Alanine Aminotransferase 21 U/L (6-50); Albumin Level 4.4 g/dL (3.5-5.1); Alkaline Phosphatase 71 U/L (38-126); Anion Gap 8 mmol/L (8-16); Aspartate Amino Transferase 26 U/L (17-59); Blood Urea Nitrogen 9 mg/dL (9-20); Calcium 8.9 mg/dL (8.4-10.2); Carbon Dioxide 28 mmol/L (22-30); Chloride 102 mmol/L (98-107); Cholesterol 131 mg/dL (0-200); Estimated Glomerular Filt Rate > 60; Glucose 98 mg/dL (65-110); HDL Direct 34 mg/dL; Potassium 3.8 mmol/L (3.4-5.0); Sodium 138 mmol/L (137-145); Triglycerides 147 mg/dL (<150)
[2022-07-15 09:18] LABS: LDL Cholesterol Direct 73 mg/dL
[2022-07-15 10:03] LABS: Vitamin D 25 Hydroxy 27.6 ng/mL
[2022-07-21 12:23] LABS: Testosterone Total 245 ng/dL (250-1100)
== END 2022-07-15 08:26 | disposition home or self-care (01) ==
LOC: ANHLAB 08:27
PROVIDERS: PCP Family Medicine; Visit Provider Family Medicine
DX: R73.01 Impaired fasting glucose (principal); E78.5 Hyperlipidemia, unspecified; I10 Essential (primary) hypertension; E55.9 Vitamin D deficiency, unspecified; E66.9 Obesity, unspecified
CPT/HCPCS: 36415; 80053; 80061; 82306; 83036; 84402; 84403

== ENCOUNTER 2022-07-27 08:21 | Outpatient (CLI) | payer OTHER, SELFPAY ==
[2022-07-27 10:06] LABS: Prostate Specific Antigen 0.7 ng/mL (< OR = 4.0)
[2022-07-31 10:45] LABS: Testosterone Total 281 ng/dL (250-1100)
== END 2022-07-27 08:22 | disposition home or self-care (01) ==
LOC: ANHLAB 08:22
PROVIDERS: PCP Family Medicine; Visit Provider Nurse Practitioner
DX: E29.1 Testicular hypofunction (principal); Z12.5 Encounter for screening for malignant neoplasm of prostate
CPT/HCPCS: 36415; 84153; 84403; G0103

== ENCOUNTER 2022-09-18 08:18 | Outpatient (CLI) | payer OTHER, SELFPAY ==
[2022-09-22 16:12] LABS: Testosterone Total 905 ng/dL (250-1100)
== END 2022-09-18 08:19 | disposition home or self-care (01) ==
LOC: ANHLAB 08:19
PROVIDERS: PCP Family Medicine; Visit Provider Family Medicine
DX: E29.1 Testicular hypofunction (principal)
CPT/HCPCS: 36415; 84402; 84403

== ENCOUNTER 2023-04-14 08:43 | Outpatient (CLI) | payer BC, SELFPAY ==
[2023-04-14 09:31] LABS: Hematocrit 49.6 % (42.0-52.0); Mean Corpuscular HGB Conc 30.2 g/dl (32-36); Mean Corpuscular Hemoglobin 26.5 pg (26-34); Mean Corpuscular Volume 87.5 fl (80-100); Mean Platelet Volume 10.2 fl (7.4-10.4); Platelet Count Result 258 k/mm3 (150-375); Red Blood Count 5.67 M/mm3 (4.6-6.20); Red Cell Distribution Width 15.4 % (11.5-14.5); White Blood Count 6.1 K/mm3 (4.5-10.0)
[2023-04-14 09:42] LABS: Alanine Aminotransferase 21 U/L (6-50); Albumin Level 4.3 g/dL (3.5-5.1); Alkaline Phosphatase 65 U/L (38-126); Anion Gap 5 mmol/L (8-16); Aspartate Amino Transferase 29 U/L (17-59); Bilirubin,Total 1.1 mg/dL (0.2-1.3); Blood Urea Nitrogen 9 mg/dL (9-20); Calcium 9.3 mg/dL (8.4-10.2); Carbon Dioxide 26 mmol/L (22-30); Chloride 105 mmol/L (98-107); Cholesterol 145 mg/dL (0-200); Estimated Glomerular Filt Rate > 60; Glucose 103 mg/dL (65-110); HDL Direct 39 mg/dL; Hemoglobin A1C 6.2 % (<5.7); Potassium 3.9 mmol/L (3.4-5.0); Sodium 136 mmol/L (137-145); Triglycerides 157 mg/dL (<150)
[2023-04-14 09:53] LABS: LDL Cholesterol Direct 84 mg/dL
[2023-04-14 13:39] LABS: Vitamin D 25 Hydroxy 37.8 ng/mL
[2023-04-22 12:00] LABS: Testosterone Total 1015 ng/dL (250-1100)
== END 2023-04-14 08:44 | disposition home or self-care (01) ==
LOC: ANHLAB 08:47
PROVIDERS: Nurse Practitioner; PCP Family Medicine; Visit Provider Family Medicine
DX: E29.1 Testicular hypofunction (principal); E66.9 Obesity, unspecified; F32.A Depression, unspecified; G47.33 Obstructive sleep apnea (adult) (pediatric); I10 Essential (primary) hypertension; I48.0 Paroxysmal atrial fibrillation; I48.91 Unspecified atrial fibrillation; Z99.89 Dependence on other enabling machines and devices; E55.9 Vitamin D deficiency, unspecified; E11.9 Type 2 diabetes mellitus without complications
CPT/HCPCS: 36415; 80053; 80061; 82306; 83036; 84153; 84403; 85027; G0103

== ENCOUNTER 2023-10-29 08:49 | Outpatient (CLI) | payer MEDICARE, SELFPAY ==
[2023-10-29 09:22] LABS: Hematocrit 50.1 % (42.0-52.0); Hemoglobin 15.8 g/dL (14.0-18.0); Mean Corpuscular HGB Conc 31.5 g/dl (32-36); Mean Corpuscular Hemoglobin 28.7 pg (26-34); Mean Corpuscular Volume 91.1 fl (80-100); Mean Platelet Volume 10.6 fl (7.4-10.4); Platelet Count Result 219 k/mm3 (150-375); White Blood Count 6.3 K/mm3 (4.5-10.0)
[2023-10-29 09:44] LABS: Alanine Aminotransferase 43 U/L (6-50); Albumin Level 4.5 g/dL (3.5-5.1); Alkaline Phosphatase 64 U/L (38-126); Anion Gap 10 mmol/L (4-12); Aspartate Amino Transferase 43 U/L (17-59); Bilirubin,Total 1.2 mg/dL (0.2-1.3); Blood Urea Nitrogen 11 mg/dL (9-20); Calcium 9.4 mg/dL (8.4-10.2); Carbon Dioxide 31 mmol/L (22-30); Chloride 98 mmol/L (98-107); Cholesterol 117 mg/dL (0-200); Estimated Glomerular Filt Rate > 60; Glucose 93 mg/dL (65-110); HDL Direct 33 mg/dL; Potassium 3.8 mmol/L (3.4-5.0); Sodium 139 mmol/L (137-145); Triglycerides 103 mg/dL (<150)
[2023-10-29 09:55] LABS: LDL Cholesterol Direct 62 mg/dL
[2023-10-29 10:01] LABS: Hemoglobin A1C 5.8 % (<5.7)
[2023-10-29 10:12] LABS: Prostate Specific Antigen 0.9 ng/mL (< OR = 4.0)
[2023-11-03 18:33] LABS: Testosterone Free 205.6 pg/mL (35.0-155.0); Testosterone Total 1032 ng/dL (250-1100)
== END 2023-10-29 08:50 | disposition home or self-care (01) ==
PROVIDERS: PCP Family Medicine; Visit Provider Family Medicine
DX: E29.1 Testicular hypofunction (principal); E66.9 Obesity, unspecified; F32.A Depression, unspecified; F41.9 Anxiety disorder, unspecified; G47.00 Insomnia, unspecified; G47.33 Obstructive sleep apnea (adult) (pediatric); G89.29 Other chronic pain; I10 Essential (primary) hypertension; I48.0 Paroxysmal atrial fibrillation; I48.91 Unspecified atrial fibrillation; Z99.89 Dependence on other enabling machines and devices; R73.03 Prediabetes; Z12.5 Encounter for screening for malignant neoplasm of prostate
CPT/HCPCS: 36415; 80053; 80061; 83036; 84153; 84402; 84403; 85027; G0103

== ENCOUNTER 2024-05-09 08:33 | Outpatient (CLI) | payer MEDICARE, SELFPAY ==
[2024-05-09 08:58] LABS: Hematocrit 45.3 % (42.0-52.0); Hemoglobin 14.7 g/dL (14.0-18.0); Mean Corpuscular HGB Conc 32.5 g/dl (32-36); Mean Corpuscular Hemoglobin 31.2 pg (26-34); Mean Corpuscular Volume 96.2 fl (80-100); Mean Platelet Volume 10.2 fl (7.4-10.4); Platelet Count Result 171 k/mm3 (150-375); Red Blood Count 4.71 M/mm3 (4.6-6.20); Red Cell Distribution Width 14.3 % (11.5-14.5); White Blood Count 4.5 K/mm3 (4.5-10.0)
--- OUTSIDE RECORDS SUMMARY | 2024-05-09 09:00 | XMS_ITS | Clinical Summary ---
Author Organization [facility] Address [address] [place] [address] Care Team Providers Care Coat Joiner Name Role Phone Raymond Matos MD Unavailable Raymond Matos MD Primary Care Provider [phone] Allergies No known active allergies Medications losartan (COZAAR) 25 mg tablet Take 1 tablet (25 mg total) by mouth daily after dinner 1 9 Active metoprolol XL (TOPROL-XL) 25 mg 24 hr tablet Take 1 tablet (25 mg total) by mouth daily after dinner 2 9 Active rosuvastatin (CRESTOR) 10 mg tablet Take 1 tablet (10 mg total) by mouth daily after dinner 2 9 Active zolpidem (AMBIEN) 10 mg tablet Take 1 tablet (10 mg total) by mouth nightly as needed at bedtime. 0 9 Active aspirin 325 mg tablet Take 1 tablet (325 mg total) by mouth daily Active naloxone (NARCAN) 4 mg/actuation spray,non-aeros ol Administer 1 spray into affected nostril(s) as needed for opioid reversal Call 911. Administer a single spray in one nostril. Repeat every 3 minutes as needed if no or minimal response. 2 each 1 Active metFORMIN XR (GLUCOPHAGE XR) 500 mg 24 hr tablet Take 1 tablet (500 mg total) by mouth daily 2 Active testosterone cypionate (DEPO-TESTOTERO NE) 200 mg/mL injection 3 Active cholecalciferol 400 unit capsule Take 5 tablet/capsule (2,000 Units total) by mouth daily 2 Active Mounjaro 5 mg/0.5 mL pen injector INJECT 0.5ML UNDER THE SKIN WEEKLY 4 Active naldemedine (Symproic) 0.2 mg tablet Take 1 tablet/capsule by mouth daily 90 tablet 3 4 12/14/19 25 Active oxyCODONE-aceta minophen (PERCOCET) 5-325 mg per tabletIndicatio ns:Pain Take 1 tablet by mouth every 8 (eight) hours as needed for pain 90 tablet 5 05/15/19 25 Active oxyCODONE-aceta minophen (PERCOCET) 5-325 mg per tabletIndicatio ns:Pain Take 1 tablet by mouth every 8 (eight) hours as needed for pain 90 tablet 5 06/14/19 25 Active oxyCODONE-aceta minophen (PERCOCET) 5-325 mg per tabletIndicatio ns:Pain Take 1 tablet by mouth every 8 (eight) hours as needed for pain 90 tablet 5 04/14/19 25 Active Problems Problem Noted Date Diagnosed Date Lower extremity numbness 11/14/2020 Complications of internal or thopedic device, implant, and graft 12/26/2018 Longstanding persistent atrial fibrillation 12/16 Long-term current use of opiate analgesic 2018 Anxiety 11/17/2018 Complex regional pain syndro me type 1 of right lower extremity 11/17/2018 Right foot pain 11/17/2018 Chronic post-operative pain 11/17/2018 Constipation due to opioid therapy 11/17/2018 Charcot's joint of right foot 04/25/2018 Neuropathy, alcoholic 04/25/2018 Encounters Date Type Department Care Team Description 03/15/2024 12:52 PM SHUTTLE THREADER - 03/15/2024 11:59 PM SHUTTLE THREADER Hospital Encounter [facility] [address] [place] [address] 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 Kaur, 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 Complex regional pain syndrome type 1 of right lower extremity (Primary Dx); Right foot pain; Long-term current use of opiate analgesic; Neuropathy, alcoholic; Charcot's joint of right foot; Constipation due to opioid therapy Discharge Disposition: Discharge to home or self care from Last 3 Months Surgical History Surgery Date Site/Laterality Comments FOOT SURGERY 04/15/2018 - 05/15/2018 Charcot Reconstruction SHOULDER SURGERY Medical History Medical History Date Comments Sleep apnea Atrial fibrillation (HCC) Hypertension History of depression Family History Medical History Relation Name Comments Alcohol abuse Brother Diabetes Brother No Known Problems Father Cancer Mother Alzheimer's disease Sister Relation Name Status Comments Brother Father Mother Sister Social History Tobacco Use Types Packs/Day Years Used Date Smoking Tobacco: Never Smokeless Tobacco: Never Tobacco Cessation:Counseling Given: Not Answered Alcohol Use Standard Drinks/Week Comments Yes 0 (1 standard drink = 0.6 oz pur e alcohol) occassional AUDIT-C Answer Date Recorded Frequency of Alcohol Consumption Monthly or less 05/30/2018 Average Number of Drinks Not on file 019 Frequency of Binge Drinking Not on file 05/16 Sex and Gender Information Value Date Recorded Sex Assigned at Not on file Legal Sex Male 2:38 PM CDT Gender Identity Not on file Sexual Orientation Not on file Obstetrics History Last Filed Vital Signs Vital Sign Reading Time Taken Comments Blood Pressure 145/80 03/15/2024 1:12 PM SHUTTLE THREADER Pulse 56 03/15/2024 1:12 PM SHUTTLE THREADER Temperature 36.3 C (97.4 F) 04/24/2020 11:51 AM SHUTTLE THREADER Respiratory Rate 16 03/15/2024 1:12 PM SHUTTLE THREADER Oxygen Saturation 99% 03/15/2024 1:12 PM SHUTTLE THREADER Inhaled Oxygen Concentration - - Weight 125.2 kg (276 lb) 09/08/2021 11:28 AM CDT Height 188 cm (6' 2 ) 05/07/2021 11:59 AM CDT Body Mass Index 35.44 05/07/2021 11:59 AM CDT Plan of Treatment Health Maintenance Due Date Last Done Comments Colon Cancer Screening-Colonoscopy 1960 Depression Screening 1958 Hepatitis C Screening 1958 Prostate Cancer Screening-PSA 1958 DTaP/Tdap/Td Vaccine (1 - Tdap) 1969 Hepatitis B Screening 1976 Pneumococcal vaccine 65+ (1 of 1 - PCV) 2008 Zoster Vaccine (1 of 2) 2008 Well Visit 65+ 09/16/2023 Covid-19 Vaccine (3 - season) 2023, 04/18/2020 Influenza Vaccine (#1) 2023 Fall Risk Assessment 03/15/2025 03/15/2024 Insurance AET SIG [id number] MEDICARE [place] MED[employer]ARE SUPPLE[place] Advance Directives For more information, please contact: [phone] Documents on File Type Date Recorded 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
--- OUTSIDE RECORDS SUMMARY | 2024-05-09 09:00 | XMS_ITS | Clinical Summary ---
Author Organization [facility] Address [address] [place] [address] Care Team Providers Care Care Consultant Name Role Phone Raymond Matos MD Primary Care Provider [phone] Allergies No known active allergies Medications Aspirin 325 MG Cap Take 325 mg by mouth after lunch. 05/15/2020 Active vitamin D3, cholecalciferol , (VITAMIN D-3) 10 MCG (400 UNIT) tablet Take 2,000 Units by mouth daily. 04/10/2021 Active escitalopram 10 MG tablet Take 10 mg by mouth after lunch. 04/10/2021 Active losartan 50 MG tablet Take 50 mg by mouth daily with lunch. 04/10/2021 Active metoprolol succinate ER (TOPROL XL) 25 MG 24 hr tablet Take 12.5 mg by mouth daily with lunch. 02/03/2021 Active Multiple Vitamins-Minera ls (MULTIVITAMIN ADULTS 50+ OR) Take 1 tablet by mouth daily with lunch. 07/16/2020 Active SYMPROIC 0.2 MG Tab Take 1 tablet by mouth nightly. 08/26/2020 Active oxyCODONE-aceta minophen 5-325 MG tablet Take 1 tablet by mouth 3 (three) times daily as needed. 04/16/2021 Active pregabalin 75 MG capsule Take 75 mg by mouth 3 (three) times a day. 04/14/2021 Active rosuvastatin 20 mg 20 mg (40 mg split tab) Take 20 mg by mouth daily. 07/16/2020 Active zolpidem 10 MG tablet Take 10 mg by mouth nightly as needed. 04/29/2021 Active Immunizations Name Administration Dates Next Due PFIZER COVID-19 (ORIGINAL FO RMULATION, PURPLE CAP) mRNA, LNP-S, PF, 30 MCG/0.3 ML DOSE 05/09/2020,04/18/2020 Family History Medical History Relation Comments Cancer Mother lymph node cance r Relation Status Comments Daughter Alive Father (Age 83) Mother (Age 53) Other Alive Son Alive Social History Tobacco Use Types Packs/Day Years Used Date Smoking Tobacco: Never Smokeless Tobacco: Never Alcohol Use Standard Drinks/Week Comments Not Currently 0 (1 standard drink = 0.6 oz pur e alcohol) quit alcohol 2018 Sex and Gender Information Value Date Recorded Sex Assigned at Not on file Legal Sex Male 8:17 AM CDT Gender Identity Male 05/16/2021 2:42 PM CDT Sexual Orientation Straight 05/16/2021 2: 42 PM CDT Last Filed Vital Signs Vital Sign Reading Time Taken Comments Blood Pressure 159/91 05/23/2021 11:20 AM CDT Pulse 70 05/23/2021 11:20 AM CDT Temperature 36.8 C (98.2 F) 05/23/2021 11:20 AM CDT Respiratory Rate 16 05/23/2021 11:2 0 AM CDT Oxygen Saturation 98% 05/23/2021 11: 20 AM CDT Inhaled Oxygen Concentration - - Weight 113.8 kg (250 lb 14.1 oz) 05/23/2021 7:05 AM CDT Height 188 cm (6' 2 ) 05/23/2021 7:05 AM CDT Body Mass Index 32.21 05/23/2021 7:05 AM CDT Plan of Treatment Health Maintenance Due Date Last Done Comments Colorectal Cancer Screening Colonoscopy (10 Years) 1958 Hepatitis C 1976 DTaP, Tdap and Td Vaccines ( 1 - Tdap) 1977 Zoster Vaccines (1 of 2) 2008 Pneumococcal Vaccine: 65+ Years (1 of 1 - PCV) 09/16/2023 COVID-19 Vaccine (3 - 2023-2 5 season) 2023 05/09/2020, 04/18/2020 Influenza Adult (#1) 2023 RSV Immunization or 60+ Years (1 - 1-dose 75+ series) 2033 Meningococcal B Vaccine Aged Out No l onger eligible based on patient's age to complete this topic Meningococcal Vaccine Aged Out No mckinley davian eligible based on patient's age to complete this topic Pneumococcal Vaccine: Pediatrics (0 to 5 Years) and At-Risk Patients (6 to 64 Years) Aged Out No longer eligible b ased on patient's age to complete this topic RSV Immunizations Under 20 Months Aged Out No longer eligible b ased on patient's age to complete this topic Insurance [facility] Care Teams Care Consultant Relationship Specialty Start Date End Date Raymond Matos MD [address] [place] [address] PCP - General INTERNAL MEDICINE 05/23/21
--- OUTSIDE RECORDS SUMMARY | 2024-05-09 09:00 | XMS_ITS | Clinical Summary ---
Author Organization [facility] Address [address] [place] [address] Care Team Providers Care Financial Services Auditor Name Role Phone Loi Krishna MD Primary Care Provider [phone] Source Comments [facility] Affiliates and Associated Physician Practices is amultiple site organization consisting of ambulatory clinics and hospital sitesin [place], [place], [place] and [place]. This disclosure is being madepursuant to the Care Everywhere program and may not contain all information available regarding this patient. Last updated 17.[facility] [employer] Allergies No known active allergies Social History Tobacco Use Types Packs/Day Years Used Date Smoking Tobacco: Never Smokeless Tobacco: Never Tobacco Cessation:Counseling Given: Not Answered Alcohol Use Standard Drinks/Week Comments Not Currently 0 (1 standard drink = 0.6 oz pur e alcohol) Sex and Gender Information Value Date Recorded Sex Assigned at Not on file Gender Identity Not on file Sexual Orientation Not on file Last Filed Vital Signs Vital Sign Reading Time Taken Comments Blood Pressure - - Pulse - - Temperature - - Respiratory Rate - - Oxygen Saturation - - Inhaled Oxygen Concentration - - Weight 120.2 kg (265 lb) 12/10/2021 3:27 PM CDT Height 190.5 cm (6' 3 ) 12/10/2021 3:27 PM CDT Body Mass Index 33.12 12/10/2021 3:27 PM CDT Plan of Treatment Health Maintenance Due Date Last Done Comments COLOGUARD (AGES 45-75) - COL ON CA SCREENING 1958 COLON MONITORING 1958 COLONOSCOPY - COLON CA SCREENING 1958 CT COLONOGRAPHY - COLON CA SCREENING 1958 Colorectal Cancer Screening 1958 FIT - COLON CA SCREENING 1958 FLEX SIG - COLON CA SCREENING 1958 LIPID TESTING 1958 HIV SCREENING 1973 HEPATITIS C SCREENING 09/10/1976 DTAP/TDAP/TD VACCINES (1 - Tdap) 1977 PNEUMOCOCCAL VACCINE 50+ (1 of 1 - PCV) 2008 ZOSTER VACCINE (1 of 2) 2008 SCREENING FOR DIABETES 12/10/2021 COVID-19 VACCINE (3 - 2023-2 5 season) 2023 05/09/2020, 04/18/2020 INFLUENZA VACCINE (#1) 2023 DEPRESSION SCREENING 02/16/2024 Respiratory Syncytial Virus (RSV) Vaccine Pt: or over 60 yrs (1 - 1-dose 75+ series) 2033 HEPATITIS B VACCINE Aged Out No longe r eligible based on patient's age to complete this topic HIB VACCINE Aged Out No longer eligi ble based on patient's age to complete this topic HPV VACCINE Aged Out No longer eligi ble based on patient's age to complete this topic MENINGOCOCCAL (Group B) VACCINE SHARED DECISION-MAKING Aged Out No longer eligible based on patient's age to complete this topic MENINGOCOCCAL GROUPS A/C/Y/W VACCINE Aged Out No longer eligible b ased on patient's age to complete this topic Care Teams Financial Services Auditor Relationship Specialty Start Date End Date Loi Krishna MD [facility] [place] [address] PCP - General 11/18/21
--- OUTSIDE RECORDS SUMMARY | 2024-05-09 09:00 | XMS_ITS ---
Author Organization [facility] Address [address] [place], [place] [id number] Care Team Providers Care Meat Dresser Name Role Phone SYMONE DILLON Unavailable [phone] Raymond Matos Unavailable Unavailable Allergies No Known Allergies REASON FOR VISIT The patient has a right foot that is severely deformed from Charcot. It has a chronic wound on the bottom that never fully closes. He wears a MODOC boot and this prevents the wound from getting larger. He was evaluated in [place] for potential Charcot reconstruction but was not deemed a good candidate Medications Medication SIG (Take, Route, Frequency, Duration) Notes Start Date End Date Status Gabapentin 300 MG Oral Capsule ORAL gabapentin 300 MG Oral CapsuleOriginal Medicationgabapentin 300 MG Oral Capsule *Reorder from [facility] for eRx and Interaction Alerts* 10/14/2020 Active Rosuvastatin Calcium 40 MG Oral Tablet ORAL rosuvastatin calcium 40 MG Oral TabletOriginal Medicationrosuvastatin calcium 40 MG Oral Tablet *Reorder from [facility] for eRx and Interaction Alerts* 10/14/2020 Active Losartan Potassium 100 MG Oral Tablet ORAL losartan potassium 100 MG Oral TabletOriginal Medicationlosartan potassium 100 MG Oral Tablet *Reorder from [facility] for eRx and Interaction Alerts* 10/14/2020 Active aspirin 81 MG Delayed Release Oral Tablet ORAL aspirin 81 MG Delayed Release Oral TabletOriginal Medicationaspirin 81 MG Delayed Release Oral Tablet *Reorder from [facility] for eRx and Interaction Alerts* 10/14/2020 Active Vital Signs Height 75 in 01/17/2024 Weight 250 lbs 01/17/2024 BMI 31.24 kg/m2 01/17/2024 Height-cm 190.5 cm 01/17/2024 Weight-kg 113.4 kg 01/17/2024 Encounters Encounter Location Date Provider Diagnosis [facility] [address] [place], [place] [id number] 01/17/2024 SYMONE DILLON Charcot's joint, right ankle and foot M14.671 ; Non-pressure chronic ulcer of other part of right foot limited to breakdown of skin L97.511 ; Charcot foot due to diabetes mellitus E11.610 ; Type 2 diabetes mellitus with foot ulcer E11.621 and Pain in right foot M79.671 Assessments Encounter Date Diagnosis (ICD Code) Assessment Notes Treatment Notes Treatment Clinical Notes Section Notes 01/17/2024 Charcot's joint, right ankle and foot (ICD-10 - M14.671) Continue: MODOC for right lower extremity 01/17/2024 Non-pressure chronic ulcer of other part of right foot limited to breakdown of skin (ICD-10 - L97.511) Ulcer Debridement: Using a 15 blade, the ulcer was sharply debrided down to bleeding tissue. The nonviable tissue was sharply debrided down to the layer of subcutaneous tissue. A dry sterile dressing was applied. 01/17/2024 Charcot foot due to diabetes mellitus (ICD-10 - E11.610) 01/17/2024 Type 2 diabetes mellitus with foot ulcer (ICD-10 - E11.621) 01/17/2024 Pain in right foot (ICD-10 - M79.671) Plan Of Treatment Treatment Notes Assessment Notes Charcot's joint, right ankle and foot Co ntinue: MODOC for right lower extremity Non-pressure chronic ulcer o f other part of right foot limited to breakdown of skin Ulcer Debridement: Using a 15 blade, the ulcer was sharply debrided down to bleeding tissue. The nonviable tissue was sharply debrided down to the layer of subcutaneous tissue. A dry sterile dressing was applied. Next Appt Details Follow Up: 2 Months, Reason: Wound care Provider Name:SYMONE DILLON, 01:10:00 PM, [address], [place], [place], [id number], Progress Notes * CATHY MARTIN FDOB:1960 (63 yo M)Acc No.[id number]:01/17/2024 Patient: CATHY CERNA Provider: Ethel Dillon DPM :1960 A ge:63 Y S ex:Male Date:01/17/2024 Address:[address] [place], [place] [id number] Subjective: * Chief Complaints: * 1 . The patient has a right foot that is severely deformed from Charcot. It has a chronic wound on the bottom that never fully closes. He wears a MODOC boot and this prevents the wound from getting larger. He was evaluated in [place] for potential Charcot reconstruction but was not deemed a good candidate. * HPI: H PI: Follow Up Visit P atient presents for follow-up visit for wound care, left foot. Patient states wound is improving and has gotten smaller. Patient states wound is not fully closed yet. MA: LB. * ROS: G eneral / Constitutional: Patient denies c hange in appetite, chills, fatigue, fever, night sweats. C ardiovascular: Patient denies e moi, swelling in hands / feet, shortness of breath. P atient complains of h air loss on legs. M usculoskeletal: Patient complains of g ait (walking problems), orthotic use. S kin: Patient complains of u lcerations, fungal nails. N eurologic: Patient complains of n umbness, burning/ tingling. ? * Medical History: M edical History Verified. * Family History: N o Family History documented.. * Social History: M igrated Social History: M igrated Social History: Alcohol intake : , History of tobacco use : , Smoking Status : Never used tobacco. * Medications: T aking Gabapentin 300 MG Oral Capsule ORAL , Notes to Pharmacist: gabapentin 300 MG Oral CapsuleOriginal Medicationgabapentin 300 MG Oral Capsule *Reorder from [facility] for eRx and Interaction Alerts*, Taking Losartan Potassium 100 MG Oral Tablet ORAL , Notes to Pharmacist: losartan potassium 100 MG Oral TabletOriginal Medicationlosartan potassium 100 MG Oral Tablet *Reorder from [facility] for eRx and Interaction Alerts*, Taking Rosuvastatin Calcium 40 MG Oral Tablet ORAL , Notes to Pharmacist: rosuvastatin calcium 40 MG Oral TabletOriginal Medicationrosuvastatin calcium 40 MG Oral Tablet *Reorder from [facility] for eRx and Interaction Alerts*, Taking aspirin 81 MG Delayed Release Oral Tablet ORAL , Notes to Pharmacist: aspirin 81 MG Delayed Release Oral TabletOriginal Medicationaspirin 81 MG Delayed Release Oral Tablet *Reorder from [facility] for eRx and Interaction Alerts*, Medication List reviewed and reconciled with the patient * Allergies: N .K.D.A. Objective: * Vitals: W t:250lbs, Wt-k.4 kg, Ht: 75 in, Ht-cm: 190.5 cm, BMI:31.24Index, Body Surface Area: 2.45. * Examination: C onstitutional: Constitutional T he patient is awake, alert, well developed, well groomed and well nourished.. D ermatologic: Ulcer: P artial thickness ulceration plantar aspect of the right midfoot. It measures 2mm x 4mm and is partial thickness. No erythema, no calor, no rubor. No drainage. V ascular: Dorsalis pedis pulse: 2 /4, bilateral. Posterior tibial pulse: 1 /4, bilaterally. Capillary refill: l ess than 3 seconds. Edema: N o edema, bilateral. N eurologic: [place]-Weinstin 5.07 monofilament a bsent sensorium to rearfoot via 5.07g monofilament.. M usculoskeletal: Muscle Strength M uscle strength is 5/5 in regards to dorsiflexion, plantarflexion, inversion, and eversion in bilateral lower extremities. The right foot has rocker-bottom foot consistent with Charcot.. Assessment: * Assessment: 1. N on-pressure chronic ulcer of other part of right foot limited to breakdown of skin - L97.511 (Primary) 2 . C harcot's joint, right ankle and foot - M14.671 ?3. C harcot foot due to diabetes mellitus - E11.610 4 . T ype 2 diabetes mellitus with foot ulcer - E11.621 5 . P ain in right foot - M79.671 ? Plan: * Treatment: 2. C harcot's joint, right ankle and foot Notes: Continue: MODOC for right lower extremity * Immunizations: Immunization record has been reviewed and updated. * Follow Up: 2 Months (Reason: Wound care) * Billing Information: * Visit Code: 52297 Office Visit, Est Pt., Level 3. * Procedure Codes: * Sign off status: Completed true * Provider: Ethel Dillon DPM Date: 03/19/2023 Generated for Azam galarza/Navdeep/Marivel on: 0 05/09/2024 09:00 AM CDT History and Physical Notes * HPI (History of Present Illness) Category Sub-Category Detail Notes Category Not es HPI Follow Up Visit Patient presents for follow-up visit for wound care, left foot. Patient states wound is improving and has gotten smaller. Patient states wound is not fully closed yet. MA: LB Examination Category Sub-Category Detail Notes Category Not es Dermatologic Ulcer: Partial thicknes s ulceration plantar aspect of the right midfoot. It measures 2mm x 4mm and is partial thickness. No erythema, no calor, no rubor. No drainage Neurologic [place]-Weinstin 5.07 monofilament absent sensorium to rearfoot via 5.07g monofilament. Vascular Dorsalis pedis pulse: 2/4, bilateral Edema: No edema, bilateral Capillary refill: less than 3 seconds Posterior tibial pulse: 1/4, bilaterally Musculoskeletal Muscle Strength Muscle strength is 5/5 in regards to dorsiflexion, plantarflexion, inversion, and eversion in bilateral lower extremities. The right foot has rocker-bottom foot consistent with Charcot. Constitutional Constitutional The patient is a wake, alert, well developed, well groomed and well nourished.
--- OUTSIDE RECORDS SUMMARY | 2024-05-09 09:00 | XMS_ITS | Encounter Summary ---
Author Organization [facility] Facility Care Team Providers Care Grinder Hand Name Role Phone Raymond Matos MD Primary Care Provider [phone] Roxann Matos MD Primary Care Provider + Raymond Matos MD Unavailable Kyra Hein RN Unavailable Unavailab Roxann Mathews MD Primary Care Provider + Raymond Matos MD Primary Care Provider [phone] Encounter Details Date Type Department Care Team (Latest Contact Info) Description 04/26/2018 Orders Only [facility] CLINCONV ProviderMike MD [address] [place] [address] Social History Tobacco Use Types Packs/Day Years Used Date Smoking Tobacco: Never Assessed Sex and Gender Information Value Date Recorded Sex Assigned at Not on file Legal Sex Male 2:38 PM CDT Gender Identity Not on file Sexual Orientation Not on file documented as of this encounter Plan of Treatment Not on file documented as of this encounter Procedures Procedure Name Priority Date/Time Associated Diagnosis Comments PROCEDURE - RESULT 04/26/2018 12 :00 AM CDT documented in this encounter Results * PROCEDURE - RESULT (04/26/2018 12:00 AM CDT) Narrative 04/26/2018 12:00 AM CDT Ordered by an unspecified provider. us Historical Provider Final Res ult documented in this encounter Visit Diagnoses Not on filedocumented in this encounter Care Teams Grinder Hand Relationship Specialty Start Date End Date Raymond Matos MD [address] [place] [address] PCP - General 04/25/18 05/26/18 Roxann Matos MD [address] [place] [address] PCP - General 05/27/18 12/19/18 Roxann Matos MD [address] [facility] [address] [place] [address] PCP - General 12/20/18 01/24/19 Raymond Matos MD [address] [place] [address] PCP - General Internal Medicine 01/25/19 Raymond Matos MD [address] [place] [address] 05/27/18 Kyra Hein, RN Registered Nurse 11/17/18 05/06/21 documented as of this encounter
--- OUTSIDE RECORDS SUMMARY | 2024-05-09 09:00 | XMS_ITS ---
Author Organization [facility] Address [address] [place], [place] [address] Care Team Providers Care Customer Relationship Specialist Name Role Phone SYMONE DILLON Unavailable [phone] Ellemary Raymond Unavailable Unavailable Allergies No Known Allergies REASON FOR VISIT The wound won't completely close, but the area that remains open is very managable. He wears his GUIDIVILLE Medications Medication SIG (Take, Route, Frequency, Duration) Notes Start Date End Date Status Gabapentin 300 MG Oral Capsule ORAL gabapentin 300 MG Oral CapsuleOriginal Medicationgabapentin 300 MG Oral Capsule *Reorder from [facility] for eRx and Interaction Alerts* 10/14/2020 Active Rosuvastatin Calcium 40 MG Oral Tablet ORAL rosuvastatin calcium 40 MG Oral TabletOriginal Medicationrosuvastatin calcium 40 MG Oral Tablet *Reorder from [facility] for eRx and Interaction Alerts* 10/14/2020 Active Losartan Potassium 100 MG Oral Tablet ORAL losartan potassium 100 MG Oral TabletOriginal Medicationlosartan potassium 100 MG Oral Tablet *Reorder from [facility] for eRx and Interaction Alerts* 10/14/2020 Active aspirin 81 MG Delayed Release Oral Tablet ORAL aspirin 81 MG Delayed Release Oral TabletOriginal Medicationaspirin 81 MG Delayed Release Oral Tablet *Reorder from [facility] for eRx and Interaction Alerts* 10/14/2020 Active Vital Signs Height 75 in 12/20/2023 Weight 250 lbs 12/20/2023 BMI 31.24 kg/m2 12/20/2023 Height-cm 190.5 cm 12/20/2023 Weight-kg 113.4 kg 12/20/2023 Encounters Encounter Location Date Provider Diagnosis [facility] [address] [place], [place] [id number] 12/20/2023 SYMONE DILLON Charcot's joint, right ankle and foot M14.671 ; Non-pressure chronic ulcer of other part of right foot limited to breakdown of skin L97.511 ; Charcot foot due to diabetes mellitus E11.610 ; Type 2 diabetes mellitus with foot ulcer E11.621 and Pain in right foot M79.671 Assessments Encounter Date Diagnosis (ICD Code) Assessment Notes Treatment Notes Treatment Clinical Notes Section Notes 12/20/2023 Charcot's joint, right ankle and foot (ICD-10 - M14.671) Continue: GUIDIVILLE for right lower extremity 12/20/2023 Non-pressure chronic ulcer of other part of right foot limited to breakdown of skin (ICD-10 - L97.511) Ulcer Debridement: Using a 15 blade, the ulcer was sharply debrided down to bleeding tissue. The nonviable tissue was sharply debrided down to the layer of subcutaneous tissue. A dry sterile dressing was applied. 12/20/2023 Charcot foot due to diabetes mellitus (ICD-10 - E11.610) 12/20/2023 Type 2 diabetes mellitus with foot ulcer (ICD-10 - E11.621) 12/20/2023 Pain in right foot (ICD-10 - M79.671) Plan Of Treatment Treatment Notes Assessment Notes Charcot's joint, right ankle and foot Co ntinue: GUIDIVILLE for right lower extremity Non-pressure chronic ulcer o f other part of right foot limited to breakdown of skin Ulcer Debridement: Using a 15 blade, the ulcer was sharply debrided down to bleeding tissue. The nonviable tissue was sharply debrided down to the layer of subcutaneous tissue. A dry sterile dressing was applied. Next Appt Details Follow Up: 4 Weeks, Reason: Wound care Provider Name:SYMONE DILLON, 01:10:00 PM, [address], [place], [place], [id number], Progress Notes * CATHY MARTIN FDOB:1960 (63 yo M)Acc No.[id number]:12/20/2023 Patient: CATHY CERNA Provider: Ethel Dillon DPM :1960 A ge:63 Y S ex:Male Date:12/20/2023 Address:[address] [place] [address] Subjective: * Chief Complaints: * 1 . The wound won't completely close, but the area that remains open is very managable. He wears his GUIDIVILLE. * HPI: H PI: Follow Up Visit P atient states their problem is, Patient presents for follow-up visit for Ulcer on heel. Pt states it is slowly heeling. Pt States it only bleeds when he wears tennis shoes., improving., MA: HG. * ROS: G eneral / Constitutional: Patient [...] umbness, burning/ tingling. ? * Medical History: * Family History: N o Family History [...] *[facility] and Interaction Alert[facility]*, Taking Losartan Potassium 100 MG Oral Tablet ORAL , Notes to Pharmacist: losartan potassium 100 MG Oral TabletOriginal Medicationlosartan potassium 100 MG Oral Tablet *[facility] and [facility]*, Taking Rosuvastatin Calcium 40 MG Oral Tablet ORAL , Notes to Pharmacist: rosuvastatin calcium 40 MG Oral TabletOriginal Medicationrosuvastatin calcium 40 MG Oral Tablet *[facility] for eRx and Interaction Alerts*, Taking aspirin 81 MG Delayed Release Oral Tablet ORAL , Notes to Pharmacist: aspirin 81 MG Delayed Release Oral TabletOriginal Medicationaspirin 81 MG Delayed Release Oral Tablet *Reorder from [facility] for eRx and Interaction Alerts*, Medication List [...] Edema: N o edema, bilateral. N eurologic: [place]-Weinstin 5.07 monofilament a bsent sensorium to rearfoot [...] joint, right ankle and foot Notes: Continue: GUIDIVILLE for right lower extremity * Immunizations: Immunization record has been reviewed and updated. * Follow Up: 4 Weeks (Reason: Wound care) * Billing Information: * Visit Code: [id number] Office Visit, Est Pt., Level 3. * Procedure Codes: * Sign off status: Completed true * Provider: Ethel Dillon DPM Date: 02/18/2023 Generated for Azam galarza/Navdeep/Marivel on: 0 05/09/2024 09:00 AM CDT History and Physical Notes * HPI (History of Present Illness) Category Sub-Category Detail Notes Category Not es HPI Follow Up Visit Patient states t heir problem is, Patient presents for follow-up visit for Ulcer on heel. Pt states it is slowly heeling. Pt States it only bleeds when he wears tennis shoes., improving., MA: HG Examination Category Sub-Category Detail Notes Category Not es Dermatologic Ulcer: Partial thicknes s ulceration plantar aspect of the right midfoot. It measures 2mm x 4mm and is partial thickness. No erythema, no calor, no rubor. No drainage Neurologic [place]annon-Weinstin 5.07 monofilament absent sensorium to rearfoot via [...]
--- OUTSIDE RECORDS SUMMARY | 2024-05-09 09:00 | XMS_ITS | Referral Summary ---
Author Organization [facility] Address [address] [place] [address] Care Team Providers Care Per Diem Clerk Name Role Phone Raymond Matos MD Unavailable Raymond Matos MD Primary Care Provider [phone] Encounters Date Type Department Care Team Description 03/15/2024 12:52 PM TRAFFIC MAINTENANCE SUPERVISOR - 03/15/2024 11:59 PM TRAFFIC MAINTENANCE SUPERVISOR Hospital Encounter [facility] [address] [place] [address] Lee Kaur NP Complex regional pain syndrome type 1 of right lower extremity (Primary Dx); Right foot pain; Long-term current use of opiate analgesic; Neuropathy, alcoholic; Charcot's joint of right foot; Constipation due to opioid therapy Discharge Disposition: Discharge to home or self care from Last 3 Months Allergies No known active allergies Medications losartan [...] of right foot 04/25/2018 Neuropathy, alcoholic 04/25/2018 Social History Tobacco Use Types Packs/Day Years [...] Comments Blood Pressure 145/80 03/15/2024 1:12 PM TRAFFIC MAINTENANCE SUPERVISOR Pulse 56 03/15/2024 1:12 PM TRAFFIC MAINTENANCE SUPERVISOR Temperature 36.3 C (97.4 F) 04/24/2020 11:51 AM TRAFFIC MAINTENANCE SUPERVISOR Respiratory Rate 16 03/15/2024 1:12 PM TRAFFIC MAINTENANCE SUPERVISOR Oxygen Saturation 99% 03/15/2024 1:12 PM TRAFFIC MAINTENANCE SUPERVISOR Inhaled Oxygen Concentration - - Weight 125.2 kg (276 lb) 09/08/2021 11:28 AM CDT Height 188 cm (6' 2 ) 05/07/2021 11:59 AM CDT Body Mass Index 35.44 05/07/2021 11:59 AM CDT Plan of Treatment Not on file Insurance [employer] SIG [id number] MEDICARE [place] MEDICARE SUPPLEMENT Advance Directives For more information, please contact: [phone] Documents on File Type Date Recorded Patient Manager Aviation Expl anation ADVANCE DIRECTIVE 05/06/2018 12:00 AM DINO Rivas OF RECREATION ENGINEER FINANCIAL/MEDICAL Care Teams Per Diem Clerk Relationship Specialty Start Date End Date Raymond Matos MD [address] [place] [address] PCP - General Internal Medicine 01/25/19 Raymond Matos MD [address] [place] [address] 05/27/18
--- OUTSIDE RECORDS SUMMARY | 2024-05-09 09:00 | XMS_ITS | Encounter Summary ---
Author Organization [facility] Facility Care Team Providers Care Wire Saw Operator Name Role Phone Raymond Matos MD Primary Care Provider [phone] Roxann Matos MD Primary Care Provider + Raymond Matos MD Unavailable Kyra Hein RN Unavailable Unavailab Roxann Mathews MD Primary Care Provider + Raymond Matos MD Primary Care Provider [phone] Encounter Details Date Type Department Care Team (Latest Contact Info) Description 05/12/2018 Orders Only [facility] CLINCON[facility] ProviderMike MD [address] [place] [address] Social History Tobacco Use Types Packs/Day [...] Date/Time Associated Diagnosis Comments PROCEDURE - RESULT 05/12/2018 12 :00 AM CDT PROCEDURE - RESULT 05/12/2018 12 :00 AM CDT PROCEDURE - RESULT 05/12/2018 12 :00 AM CDT documented in this encounter Results * PROCEDURE - RESULT (05/12/2018 12:00 AM CDT) Narrative 05/12/2018 12:00 AM CDT Ordered by an unspecified provider. Historical Provider Final Res ult * PROCEDURE - RESULT (05/12/2018 12:00 AM CDT) Narrative 05/12/2018 12:00 AM CDT Ordered by an unspecified provider. Historical Provider Final Res ult * PROCEDURE - RESULT (05/12/2018 12:00 AM CDT) Narrative 05/12/2018 12:00 AM CDT Ordered by an unspecified provider. Historical Provider Final Res ult documented in this encounter Visit Diagnoses Not on filedocumented in this encounter Care Teams Wire Saw Operator Relationship Specialty Start Date End Date Raymond Matos MD [address] [place] [address] PCP - General 04/25/18 05/26/18 Roxann Matos MD [address] [address] PCP - General 05/27/18 12/19/18 Roxann Matos MD [address] [facility] [address] [place] [address] PCP - General 12/20/18 01/24/19 Raymond Matos MD [address] [place] [address] PCP - General Internal Medicine 01/25/19 Raymond Matos MD [address] [place] [address] 05/27/18 Kyra Hein, RN Registered Nurse 11/17/18 05/06/21 documented as of this encounter
--- OUTSIDE RECORDS SUMMARY | 2024-05-09 09:01 | XMS_ITS ---
Author Organization [facility] Address [address] [place], [place] [address] Care Team Providers Care District Wildlife Manager Name Role Phone LOBITO GÓMEZIC Unavailable [phone] AdanzulmaRaymond Unavailable Unavailable Allergies No Known Allergies REASON FOR VISIT The patient was shoveling snow and his wound must have broken open and formed a blood blisters under his right foot Medications Medication SIG (Take, Route, Frequency, Duration) Notes Start Date End Date Status Gabapentin 300 MG Oral Capsule ORAL gabapentin 300 MG Oral CapsuleOriginal Medicationgabapentin 300 MG Oral Capsule *Reorder from [employer] for eRx and Interaction Alerts* 10/14/2020 Active aspirin 81 MG Delayed Release Oral Tablet ORAL aspirin 81 MG Delayed Release Oral TabletOriginal Medicationaspirin 81 MG Delayed Release Oral Tablet *Reorder from [employer] for eRx and Interaction Alerts* 10/14/2020 Active Losartan Potassium 100 MG Oral Tablet ORAL losartan potassium 100 MG Oral TabletOriginal Medicationlosartan potassium 100 MG Oral Tablet *Reorder from [employer] for eRx and Interaction Alerts* 10/14/2020 Active Rosuvastatin Calcium 40 MG Oral Tablet ORAL rosuvastatin calcium 40 MG Oral TabletOriginal Medicationrosuvastatin calcium 40 MG Oral Tablet *Reorder from [employer] for eRx and Interaction Alerts* 10/14/2020 Active Encounters Encounter Location Date Provider Diagnosis [facility] [address] [place], [place] [id number] 03/20/2024 SYMONE WILMA Non-pressure chronic ulcer of other part of right foot limited to breakdown of skin L97.511 ; Charcot's joint, right ankle and foot M14.671 ; Charcot foot due to diabetes mellitus E11.610 ; Type 2 diabetes mellitus with foot ulcer E11.621 and Pain in right foot M79.671 Assessments Encounter Date Diagnosis (ICD Code) Assessment Notes Treatment Notes Treatment Clinical Notes Section Notes 03/20/2024 Non-pressure chronic ulcer of other part of right foot limited to breakdown of skin (ICD-10 - L97.511) Ulcer Debridement: Using a 15 blade, the ulcer was sharply debrided down to bleeding tissue. The nonviable tissue was sharply debrided down to the layer of subcutaneous tissue. A dry sterile dressing was applied. 03/20/2024 Charcot's joint, right ankle and foot (ICD-10 - M14.671) Continue: TRIBAL for right lower extremity 03/20/2024 Charcot foot due to diabetes mellitus (ICD-10 - E11.610) 03/20/2024 Type 2 diabetes mellitus with foot ulcer (ICD-10 - E11.621) 03/20/2024 Pain in right foot (ICD-10 - M79.671) Plan Of Treatment Treatment Notes Assessment Notes Non-pressure chronic ulcer o f other part of right foot limited to breakdown of skin Ulcer Debridement: Using a 15 blade, the ulcer was sharply debrided down to bleeding tissue. The nonviable tissue was sharply debrided down to the layer of subcutaneous tissue. A dry sterile dressing was applied. Charcot's joint, right ankle and foot Co ntinue: TRIBAL for right lower extremity Next Appt Details Follow Up: 3 Months, Reason: Diabetic foot exam; sooner if problems return Provider Name:SYMONE DILLON, 01:10:00 PM, [address], [facility], [place], [place], [id number], Progress Notes * CATHY MARTIN FDOB:1960 (63 yo M)Acc No.[id number]:03/20/2024 Patient: CATHY CERNA Provider: Ethel Dillon DPM :1960 A ge:63 Y S ex:Male Date:03/20/2024 Address:[address] [place] [address] Subjective: * Chief Complaints: * T he patient was shoveling snow and his wound must have broken open and formed a blood blisters under his right foot * HPI: H PI: Follow Up Visit P tiny presents for follow-up visit for wound care, bottom of right foot. Patient states he has had a small set back in the last month. Patient states he was shoveling snow while in his tennis shoes and developed blisters on each side of wound. MA LB. * ROS: G eneral / Constitutional: [...] burning/ tingling. ? * Medical History: * Surgical History: * Hospitalization/Major Diagno stic Procedure: * Social History: M igrated Social History: M igrated Social History: Alcohol intake : , History of tobacco use : , Smoking Status : Never used tobacco. * Medications: T akingGabapentin 300 MG Oral Capsule ORAL , Notes to Pharmacist: gabapentin 300 MG Oral CapsuleOriginal Medicationgabapentin 300 MG Oral Capsule *Reorder from [employer] for eRx and Interaction Alerts*Losartan Potassium 100 MG Oral Tablet ORAL , Notes to Pharmacist: losartan potassium 100 MG Oral TabletOriginal Medicationlosartan potassium 100 MG Oral Tablet *[facility] and Interaction Alert[facility]*Rosuvastatin Calcium 40 MG Oral Tablet ORAL , Notes to Pharmacist: rosuvastatin calcium 40 MG Oral TabletOriginal Medicationrosuvastatin calcium 40 MG Oral Tablet *[facility] for [facility] and Interaction Alerts*aspirin 81 MG Delayed Release Oral Tablet ORAL , Notes to Pharmacist: aspirin 81 MG Delayed Release Oral TabletOriginal Medicationaspirin 81 MG Delayed Release Oral Tablet *[facility] for [facility]Rx and Interaction Alerts*Medication List reviewed and reconciled with the patientTaking Gabapentin 300 MG Oral Capsule ORAL , Notes to Pharmacist: gabapentin 300 MG Oral CapsuleOriginal Medicationgabapentin 300 MG Oral Capsule *Reorder from [facility] for eRx and Interaction Alerts*Taking Losartan Potassium 100 MG Oral Tablet ORAL , Notes to Pharmacist: losartan potassium 100 MG Oral TabletOriginal Medicationlosartan potassium 100 MG Oral Tablet *Reorder from [facility] for eRx and Interaction Alerts*Taking Rosuvastatin Calcium 40 MG Oral Tablet ORAL , Notes to Pharmacist: rosuvastatin calcium 40 MG Oral TabletOriginal Medicationrosuvastatin calcium 40 MG Oral Tablet *Reorder from [facility] for eRx and Interaction Alerts*Taking aspirin 81 MG Delayed Release Oral Tablet ORAL , Notes to Pharmacist: aspirin 81 MG Delayed Release Oral TabletOriginal Medicationaspirin 81 MG Delayed Release Oral Tablet *Reorder from [facility] for eRx and Interaction Alerts*Medication List reviewed and reconciled with the patient * Allergies: N .K.D.A.no[Allergies Verified] Objective: * Vitals: * Examination: C onstitutional: Constitutional T he patient is awake, alert, well developed, well groomed and well nourished.. D ermatologic: Ulcer: P artial thickness ulceration plantar aspect of the right midfoot. It measures 2mm x 4mm and is partial thickness. No erythema, no calor, no rubor. No drainage. The surrounding skin has a partial thickness bullae that contains old sanguinous material. Post debridement, intact skin underneath. V ascular: Dorsalis pedis pulse: 2 /4, bilateral. Posterior tibial pulse: 1 /4, bilaterally. Capillary refill: l ess than 3 seconds. Edema: N o edema, bilateral. N eurologic: Kuna-Weinstin 5.07 monofilament a bsent sensorium to rearfoot [...] joint, right ankle and foot Notes: Continue: TRIBAL for right lower extremity * Procedure Codes: * Follow Up: 3 Months (Reason: Diabetic foot exam; sooner if problems return) * Billing Information: * Visit Code: 33202 Office Visit, Est Pt., Level 3. * Procedure Codes: * L COVERER Sign off status: Completed true * Provider: Ethel Dillon DPM Date: 03/20/2024 Generated for Azam galarza/Navdeep/Marivel on: 0 05/09/2024 09:00 AM CDT History and Physical Notes * HPI (History of Present Illness) Category Sub-Category Detail Notes Category Not es HPI Follow Up Visit Patient presents for follow-up visit for wound care, bottom of right foot. Patient states he has had a small set back in the last month. Patient states he was shoveling snow while in his tennis shoes and developed blisters on each side of wound. MA LB Examination Category Sub-Category Detail Notes Category Not es Dermatologic Ulcer: Partial thicknes s ulceration plantar aspect of the right midfoot. It measures 2mm x 4mm and is partial thickness. No erythema, no calor, no rubor. No drainage. The surrounding skin has a partial thickness bullae that contains old sanguinous material. Post debridement, intact skin underneath Neurologic Kuna-Weinstin 5.07 monofilament absent sensorium to rearfoot via [...]
--- OUTSIDE RECORDS SUMMARY | 2024-05-09 09:01 | XMS_ITS | Patient Health Record ---
Author Organization [facility] Address [address] [place], [place] [id number] Care Team Providers Care Founder Chairman And Chief Creative Officer Name Role Phone SYMONE DILLON Unavailable [phone] Ellemary Raymond Unavailable Unavailable Allergies No Known Allergies Reason For Referral No Information Medications Medication SIG (Take, Route, Frequency, Duration) Notes Start Date End Date Status Gabapentin 300 MG Oral Capsule ORAL gabapentin 300 MG Oral CapsuleOriginal Medicationgabapentin 300 MG Oral Capsule *Reorder from [employer] for eRx and Interaction Alerts* 10/14/2020 Active aspirin 81 MG Delayed Release Oral Tablet ORAL aspirin 81 MG Delayed Release Oral TabletOriginal Medicationaspirin 81 MG Delayed Release Oral Tablet *Reorder from [employer] for eRx and Interaction Alerts* 10/14/2020 Active Losartan Potassium 100 MG Oral Tablet ORAL losartan potassium 100 MG Oral TabletOriginal Medicationlosartan potassium 100 MG Oral Tablet *Reorder from [employer] for eRx and Interaction Alerts* 10/14/2020 Active Rosuvastatin Calcium 40 MG Oral Tablet ORAL rosuvastatin calcium 40 MG Oral TabletOriginal Medicationrosuvastatin calcium 40 MG Oral Tablet *Reorder from [employer] for eRx and Interaction Alerts* 10/14/2020 Active Vital Signs Height-cm 190.5 cm 01/17/2024 Weight-kg 113.4 kg 01/17/2024 Height 75 in 01/17/2024 Weight 250 lbs 01/17/2024 BMI 31.24 kg/m2 01/17/2024 Encounters Encounter Location Date Provider Diagnosis [facility] [place] [address] [place] [id number] 08/16/2023 SYMONE SNOOK Charcot's joint, right ankle and foot M14.671 ; Non-pressure chronic ulcer of other part of right foot limited to breakdown of skin L97.511 ; Charcot foot due to diabetes mellitus E11.610 ; Type 2 diabetes mellitus with foot ulcer E11.621 and Pain in right foot M79.671 [facility] [place] [address] [address] [place] [id number] 09/06/2023 SYMONE SNOOK Charcot's joint, right ankle and foot M14.671 ; Non-pressure chronic ulcer of other part of right foot limited to breakdown of skin L97.511 ; Charcot foot due to diabetes mellitus E11.610 ; Type 2 diabetes mellitus with foot ulcer E11.621 and Pain in right foot M79.671 [facility] [place] [address] [address] [place] [id number] 09/27/2023 SYMONE SNOOK Charcot's joint, right ankle and foot M14.671 ; Non-pressure chronic ulcer of other part of right foot limited to breakdown of skin L97.511 ; Charcot foot due to diabetes mellitus E11.610 ; Type 2 diabetes mellitus with foot ulcer E11.621 and Pain in right foot M79.671 [facility] [place] [address] [address] [place] [id number] 10/25/2023 SYMONE SNOOK Charcot's joint, right ankle and foot M14.671 ; Non-pressure chronic ulcer of other part of right foot limited to breakdown of skin L97.511 ; Charcot foot due to diabetes mellitus E11.610 ; Type 2 diabetes mellitus with foot ulcer E11.621 and Pain in right foot M79.671 [facility] [place] [address] [place] [id number] 11/22/2023 SYMONE SNOOK Charcot's joint, right ankle and foot M14.671 ; Non-pressure chronic ulcer of other part of right foot limited to breakdown of skin L97.511 ; Charcot foot due to diabetes mellitus E11.610 ; Type 2 diabetes mellitus with foot ulcer E11.621 and Pain in right foot M79.671 [facility] [place] [address] [place] [id number] 12/20/2023 SYMONE SNOOK Charcot's joint, right ankle and foot M14.671 ; Non-pressure chronic ulcer of other part of right foot limited to breakdown of skin L97.511 ; Charcot foot due to diabetes mellitus E11.610 ; Type 2 diabetes mellitus with foot ulcer E11.621 and Pain in right foot M79.671 [facility] [address] [place] [id number] 01/17/2024 SYMONE SNOOK Charcot's joint, right ankle and foot M14.671 ; Non-pressure chronic ulcer of other part of right foot limited to breakdown of skin L97.511 ; Charcot foot due to diabetes mellitus E11.610 ; Type 2 diabetes mellitus with foot ulcer E11.621 and Pain in right foot M79.671 [facility] [address] [place] [id number] 03/20/2024 SYMONE SNOOK Non-pressure chronic ulcer of other part of right foot limited to breakdown of skin L97.511 ; Charcot's joint, right ankle and foot M14.671 ; Charcot foot due to diabetes mellitus E11.610 ; Type 2 diabetes mellitus with foot ulcer E11.621 and Pain in right foot M79.671 Assessments Encounter Date Diagnosis (ICD Code) Assessment Notes Treatment Notes Treatment Clinical Notes Section Notes 08/16/2023 Non-pressure chronic ulcer of other part of right foot limited to breakdown of skin (ICD-10 - L97.511) 08/16/2023 Charcot's joint, right ankle and foot (ICD-10 - M14.671) Order: CHULOONAWICK for right lower extremity 09/06/2023 Non-pressure chronic ulcer of other part of right foot limited to breakdown of skin (ICD-10 - L97.511) Ulcer Debridement: Using a 15 blade, the ulcer was sharply debrided down to bleeding tissue. The nonviable tissue was sharply debrided down to the layer of subcutaneous tissue. A dry sterile dressing was applied. 09/06/2023 Charcot's joint, right ankle and foot (ICD-10 - M14.671) Awaiting: CHULOONAWICK for right lower extremity 09/27/2023 Non-pressure chronic ulcer of other part of right foot limited to breakdown of skin (ICD-10 - L97.511) Ulcer Debridement: Using a 15 blade, the ulcer was sharply debrided down to bleeding tissue. The nonviable tissue was sharply debrided down to the layer of subcutaneous tissue. A dry sterile dressing was applied. 09/27/2023 Charcot's joint, right ankle and foot (ICD-10 - M14.671) Awaiting: CHULOONAWICK for right lower extremity 10/25/2023 Non-pressure chronic ulcer of other part of right foot limited to breakdown of skin (ICD-10 - L97.511) Ulcer Debridement: Using a 15 blade, the ulcer was sharply debrided down to bleeding tissue. The nonviable tissue was sharply debrided down to the layer of subcutaneous tissue. A dry sterile dressing was applied. 10/25/2023 Charcot's joint, right ankle and foot (ICD-10 - M14.671) Awaiting: CHULOON[place]ICK for right lower extremity 11/22/2023 Non-pressure chronic ulcer of other part of right foot limited to breakdown of skin (ICD-10 - L97.511) Ulcer Debridement: Using a 15 blade, the ulcer was sharply debrided down to bleeding tissue. The nonviable tissue was sharply debrided down to the layer of subcutaneous tissue. A dry sterile dressing was applied. 11/22/2023 Charcot's joint, right ankle and foot (ICD-10 - M14.671) Continue: CHULOONAWICK for right lower extremity 12/20/2023 Non-pressure chronic ulcer of other part of right foot limited to breakdown of skin (ICD-10 - L97.511) Ulcer Debridement: Using a 15 blade, the ulcer was sharply debrided down to bleeding tissue. The nonviable tissue was sharply debrided down to the layer of subcutaneous tissue. A dry sterile dressing was applied. 12/20/2023 Charcot's joint, right ankle and foot (ICD-10 - M14.671) Continue: CHULOON[place]ICK for right lower extremity 01/17/2024 Non-pressure chronic ulcer of other part of right foot limited to breakdown of skin (ICD-10 - L97.511) Ulcer Debridement: Using a 15 blade, the ulcer was sharply debrided down to bleeding tissue. The nonviable tissue was sharply debrided down to the layer of subcutaneous tissue. A dry sterile dressing was applied. 01/17/2024 Charcot's joint, right ankle and foot (ICD-10 - M14.671) Continue: CHULOON[place]ICK for right lower extremity 03/20/2024 Non-pressure chronic ulcer of other part of right foot limited to breakdown of skin (ICD-10 - L97.511) Ulcer Debridement: Using a 15 blade, the ulcer was sharply debrided down to bleeding tissue. The nonviable tissue was sharply debrided down to the layer of subcutaneous tissue. A dry sterile dressing was applied. 03/20/2024 Charcot's joint, right ankle and foot (ICD-10 - M14.671) Continue: CHULOON[place]ICK for right lower extremity 01/17/2024 Charcot foot due to diabetes mellitus (ICD-10 - E11.610) 12/20/2023 Charcot foot due to diabetes mellitus (ICD-10 - E11.610) 03/20/2024 Charcot foot due to diabetes mellitus (ICD-10 - E11.610) 11/22/2023 Charcot foot due to diabetes mellitus (ICD-10 - E11.610) 10/25/2023 Charcot foot due to diabetes mellitus (ICD-10 - E11.610) 09/27/2023 Charcot foot due to diabetes mellitus (ICD-10 - E11.610) 09/06/2023 Charcot foot due to diabetes mellitus (ICD-10 - E11.610) 08/16/2023 Charcot foot due to diabetes mellitus (ICD-10 - E11.610) 08/16/2023 Type 2 diabetes mellitus with foot ulcer (ICD-10 - E11.621) 09/06/2023 Type 2 diabetes mellitus with foot ulcer (ICD-10 - E11.621) 09/27/2023 Type 2 diabetes mellitus with foot ulcer (ICD-10 - E11.621) 10/25/2023 Type 2 diabetes mellitus with foot ulcer (ICD-10 - E11.621) 11/22/2023 Type 2 diabetes mellitus with foot ulcer (ICD-10 - E11.621) 12/20/2023 Type 2 diabetes mellitus with foot ulcer (ICD-10 - E11.621) 01/17/2024 Type 2 diabetes mellitus with foot ulcer (ICD-10 - E11.621) 03/20/2024 Type 2 diabetes mellitus with foot ulcer (ICD-10 - E11.621) 03/20/2024 Pain in right foot (ICD-10 - M79.671) 01/17/2024 Pain in right foot (ICD-10 - M79.671) 12/20/2023 Pain in right foot (ICD-10 - M79.671) 11/22/2023 Pain in right foot (ICD-10 - M79.671) 10/25/2023 Pain in right foot (ICD-10 - M79.671) 09/27/2023 Pain in right foot (ICD-10 - M79.671) 09/06/2023 Pain in right foot (ICD-10 - M79.671) 08/16/2023 Pain in right foot (ICD-10 - M79.671) 08/16/2023 Other Ulcer Debridement: Using a 15 blade, the ulcer was sharply debrided down to bleeding tissue. The nonviable tissue was sharply debrided down to the layer of subcutaneous tissue. A dry sterile dressing was applied. Ulcer Plan of Care: The treatment goals are closure of the ulceration within an appropriate time frame. This will require regular debridements every 2 weeks until skin closure has been met. The patient will come in sooner than 2 weeks if the wound develops any signs of infection or deteriorates. The plan of care will be reviewed every month. If there is no change in the size of the wound, we will re evaluate debridement schedule, topical medications being used, as well as modify techniques for offloading the wound. [employer] Grade 0: Pre-ulcerative Lesion, healed ulcers, presence of bone deformity Grade 1: Superficial Ulcer without subcutaneous tissue involvement Grade 2: Penetration through the subcutaneous tissue (may expose bone, tendon, ligament or joint capsule) Grade 3: Osteitis, abscess or osteomyelitis Grade 4: Gangrene of the foot. Based on clinical findings, the patient has the following grade ulceration: 1 Infection Protocol: Patient instructed to observe foot for signs and symptoms of infection, including but not limited to: increased redness and warmth to the area, increased drainage from the area, foul odor, and/or presence of fever/chills/naus ea/vomiting. If patient experiences any of the above they are to call the office immediately, if someone is not present in the office then proceed to the nearest ER. Plan Of Treatment Next Appt Details Provider Name:SYMONE DILLON, 01:10:00 PM, [address], [place], [place], [id number], Insurance Providers Payer Name Payer Address Payer Phone Subscriber Number Group Number Insured Name Patient Relationship to Insured Coverage Start Date Coverage End Date Medicare Part B [place] [address] [place] [address] [id number] CATHY MARTIN Self - patient is the insured [employer] MEDICARE SUPPLEMENT [address] [address] [facility] [place] [address] [id number] CATHY MARTIN Self - patient is the insured
[2024-05-09 09:43] LABS: Alanine Aminotransferase 25 U/L (6-50); Albumin Level 4.2 g/dL (3.5-5.1); Alkaline Phosphatase 63 U/L (38-126); Anion Gap 8 mmol/L (4-12); Aspartate Amino Transferase 34 U/L (17-59); Bilirubin,Total 1.1 mg/dL (0.2-1.3); Blood Urea Nitrogen 6 mg/dL (9-20); Carbon Dioxide 28 mmol/L (22-30); Chloride 103 mmol/L (98-107); Estimated Glomerular Filt Rate > 60; Glucose 103 mg/dL (65-110); Potassium 3.5 mmol/L (3.4-5.0); Sodium 139 mmol/L (137-145)
[2024-05-09 10:12] LABS: Prostate Specific Antigen 0.6 ng/mL (< OR = 4.0)
[2024-05-09 10:30] LABS: Creatinine Urine 41.4 mg/dL
[2024-05-09 10:44] LABS: MALB Creatinine Ratio < 14.5 mg/g (0-30); Microalbumin Urine Random < 6.0 mg/L (0-16.7)
== END 2024-05-09 08:34 | disposition home or self-care (01) ==
PROVIDERS: PCP Family Medicine; Visit Provider Family Medicine
DX: E11.9 Type 2 diabetes mellitus without complications (principal); R79.89 Other specified abnormal findings of blood chemistry; E29.1 Testicular hypofunction; Z12.5 Encounter for screening for malignant neoplasm of prostate
CPT/HCPCS: 36415; 80053; 82043; 83036; 84153; 84403; 85027; G0103

== ENCOUNTER 2024-05-25 08:52 | Outpatient (CLI) | payer MEDICARE, SELFPAY ==
--- OUTSIDE RECORDS SUMMARY | 2024-05-25 09:07 | XMS_ITS | Referral Summary ---
Author Organization [facility] [place] [facility] Address [address] [place] [address] Care Team Providers Care Auto Crane Driver Name Role Phone Raymond Matos MD Unavailable Raymond Matos MD Primary Care Provider [phone] Encounters Date Type Department Care Team Description 03/15/2024 12:52 PM FRONT OFFICE JAVA DEVELOPER - 03/15/2024 11:59 PM FRONT OFFICE JAVA DEVELOPER Hospital Encounter [facility] [address] [place] [address] Lee Kaur NP Complex regional pain syndrome [...] pain 90 tablet 5 05/15/19 25 Active Problems Problem Noted Date Diagnosed [...] Comments Blood Pressure 145/80 03/15/2024 1:12 PM FRONT OFFICE JAVA DEVELOPER Pulse 56 03/15/2024 1:12 PM FRONT OFFICE JAVA DEVELOPER Temperature 36.3 C (97.4 F) 04/24/2020 11:51 AM FRONT OFFICE JAVA DEVELOPER Respiratory Rate 16 03/15/2024 1:12 PM FRONT OFFICE JAVA DEVELOPER Oxygen Saturation 99% 03/15/2024 1:12 PM FRONT OFFICE JAVA DEVELOPER Inhaled Oxygen Concentration - - Weight 125.2 kg (276 lb) 09/08/2021 11:28 AM CDT Height 188 cm (6' 2 ) 05/07/2021 11:59 AM CDT Body Mass Index 35.44 05/07/2021 11:59 AM CDT Plan of Treatment Not on file Insurance [employer] SIG [id number] MEDICARE [place] MEDICARE SU[place] Advance Directives For more information, please contact: [phone] Documents on File Type Date Recorded Patient 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
--- OUTSIDE RECORDS SUMMARY | 2024-05-25 09:07 | XMS_ITS | Clinical Summary ---
Author Organization [facility] Address [address] [place] [address] Care Team Providers Care Dermatopathologist Name Role Phone Loi Krishna MD Primary Care Provider [phone] Source Comments [facility],non-ssm health care Affiliates and Associated Physician Practices is amultiple site organization consisting of ambulatory clinics and hospital sitesin [place], [place], [place] and [place]. This disclosure is being madepursuant to the Care Everywhere program and may not contain all information available regarding this patient. Last updated 17.[facility] [employer] Allergies No known active allergies Social History [...] - 2023-2 5 season) 2023 05/09/2020, 04/18/2020 DEPRESSION SCREENING 02/16/2024 INFLUENZA VACCINE (Season Ended) 2024 Respiratory Syncytial Virus (RSV) Vaccine Pt: or [...] age to complete this topic Care Teams Dermatopathologist Relationship Specialty Start Date End Date Loi Krishna MD [facility] [place] [address] PCP - General 11/18/21
--- OUTSIDE RECORDS SUMMARY | 2024-05-25 09:07 | XMS_ITS | Encounter Summary ---
Author Organization [facility] Care Team Providers Care Rn Pediatric Icu Name Role Phone Raymond Matos MD Primary Care Provider [phone] Roxann Matos MD Primary Care Provider + Raymond Matos MD Unavailable Kyra Hein RN Unavailable Unavailab Roxann Mathews MD Primary Care Provider + Raymond Matos MD Primary Care Provider [phone] Encounter Details Date Type Department Care Team (Latest Contact Info) Description 05/12/2018 Orders Only [facility] CLINCONV ProviderMike MD [address] [place] [address] Social History Tobacco Use Types Packs/Day [...] on filedocumented in this encounter Care Teams Rn Pediatric Icu Relationship Specialty Start Date End Date Raymond Matos MD [address] [place] [address] PCP - General 04/25/18 05/26/18 Roxann Matos MD [address] [address] PCP - General 05/27/18 12/19/18 Roxann Matos MD [address] [facility] [address] [place] [address] PCP - General 12/20/18 01/24/19 Raymond Matos MD [address] [place] [address] PCP - General Internal Medicine 01/25/19 Raymond Matos MD [address] [place] [address] 05/27/18 Kyra Hein, RN Registered Nurse 11/17/18 05/06/21 documented as of this encounter
--- OUTSIDE RECORDS SUMMARY | 2024-05-25 09:07 | XMS_ITS | Clinical Summary ---
Author Organization [facility] Address [address] [place] [address] Care Team Providers Care Hasher Operator Name Role Phone Raymond Matos MD Primary Care Provider [phone] Allergies No known active allergies Medications Aspirin [...] - 2023-2 5 season) 2023 05/09/2020, 04/18/2020 RSV Immunization or 60+ Years (1 - [...] patient's age to complete this topic Insurance [facility] Care Teams Hasher Operator Relationship Specialty Start Date End Date Raymond Matos MD [address] [place] [address] PCP - General INTERNAL MEDICINE 05/23/21
--- OUTSIDE RECORDS SUMMARY | 2024-05-25 09:07 | XMS_ITS | Clinical Summary ---
Author Organization [facility] Address [address] [place] [address] Care Team Providers Care Prevention Coordinator Name Role Phone Raymond Matos MD Unavailable Raymond Matos MD Primary Care Provider [phone] Allergies No known active allergies Medications losartan [...] Department Care Team Description 03/15/2024 12:52 PM ER RN - 03/15/2024 11:59 PM ER RN Hospital Encounter [facility] [address] [place] [address] Lee Kuar NP Complex regional pain syndrome type 1 [...] Comments Blood Pressure 145/80 03/15/2024 1:12 PM ER RN Pulse 56 03/15/2024 1:12 PM ER RN Temperature 36.3 C (97.4 F) 04/24/2020 11:51 AM ER RN Respiratory Rate 16 03/15/2024 1:12 PM ER RN Oxygen Saturation 99% 03/15/2024 1:12 PM ER RN Inhaled Oxygen Concentration - - Weight 125.2 [...] 2008 Well Visit 65+ 09/16/2023 Covid-19 Vaccine (2023- season) 2023, 04/18/2020 Influenza Vaccine (Season Ended) 2024 Fall Risk Assessment 03/15/2025 03/15/2024 Insurance [employer] SIG [id number] MEDICARE [place] MEDIC[employer] SUPPLEMENT Advance Directives For more information, please contact: [phone] Documents on File Type Date Recorded Patient Rn Transfer Expl anation ADVANCE DIRECTIVE 05/06/2018 12:00 AM [facility] [employer] Care Teams Prevention Coordinator Relationship Specialty Start Date End Date Raymond Matos MD [address] [place] [address] PCP - General Internal Medicine 01/25/19 Raymond Matos MD [address] [place] [address] 05/27/18
--- OUTSIDE RECORDS SUMMARY | 2024-05-25 09:08 | XMS_ITS ---
Author Organization [facility] Address [address] [place], [place] [id number] Care Team Providers Care Laboratory Operations Coordinator Name Role Phone SYMONE DILLON Unavailable [phone] Raymond Matos Unavailable Unavailable Allergies No Known Allergies REASON FOR VISIT The patient has a right foot that is severely deformed from Charcot. It has a chronic wound on the bottom that never fully closes. He wears a CHILKAT boot and this prevents the wound from getting larger. He was evaluated in [place] for potential Charcot reconstruction but was not deemed a good candidate Medications Medication SIG (Take, Route, Frequency, Duration) Notes Start Date End Date Status Gabapentin 300 MG Oral Capsule ORAL gabapentin 300 MG Oral CapsuleOriginal Medicationgabapentin 300 MG Oral Capsule *Reorder from [employer] for eRx and Interaction Alerts* 10/14/2020 Active Rosuvastatin Calcium 40 MG Oral Tablet ORAL rosuvastatin calcium 40 MG Oral TabletOriginal Medicationrosuvastatin calcium 40 MG Oral Tablet *Reorder from [employer] for eRx and Interaction Alerts* 10/14/2020 Active Losartan Potassium 100 MG Oral Tablet ORAL losartan potassium 100 MG Oral TabletOriginal Medicationlosartan potassium 100 MG Oral Tablet *Reorder from [employer] for eRx and Interaction Alerts* 10/14/2020 Active aspirin 81 MG Delayed Release Oral Tablet ORAL aspirin 81 MG Delayed Release Oral TabletOriginal Medicationaspirin 81 MG Delayed Release Oral Tablet *Reorder from [employer] for eRx and Interaction Alerts* 10/14/2020 Active Vital Signs Height 75 in 01/17/2024 Weight 250 lbs 01/17/2024 BMI 31.24 kg/m2 01/17/2024 Height-cm 190.5 cm 01/17/2024 Weight-kg 113.4 kg 01/17/2024 Encounters Encounter Location Date Provider Diagnosis [facility] [place] [address] [place], [place] [id number] 01/17/2024 SYMONE DILLON Charcot's joint, right ankle [...] ankle and foot (ICD-10 - M14.671) Continue: CHILKAT for right lower extremity 01/17/2024 Non-pressure chronic [...] joint, right ankle and foot Co ntinue: CHILKAT for right lower extremity Non-pressure chronic ulcer [...] 01:10:00 PM, [address], [place], [place], [id number], Progress Notes * CATHY MARTIN FDOB:1960 (63 yo M)Acc No.[id number]:01/17/2024 Patient: CATHY CERNA Provider: Ethel Dillon DPM :1960 A ge:63 Y S ex:Male Date:01/17/2024 Address:[address] [place], [place] [id number] Subjective: * Chief Complaints: * 1 . The patient has a right foot that is severely deformed from Charcot. It has a chronic wound on the bottom that never fully closes. He wears a CHILKAT boot and this prevents the wound from getting larger. He was evaluated in [place] for potential Charcot reconstruction but was not [...] Medicationgabapentin 300 MG Oral Capsule *Reorder from [facility] for eRx and Interaction Alerts*, Taking Losartan Potassium 100 MG Oral Tablet ORAL , Notes to Pharmacist: losartan potassium 100 MG Oral TabletOriginal Medicationlosartan potassium 100 MG Oral Tablet *Reorder from [facility] for eRx and Interaction Alerts*, Taking Rosuvastatin Calcium 40 MG Oral Tablet ORAL , Notes to Pharmacist: rosuvastatin calcium 40 MG Oral TabletOriginal Medicationrosuvastatin calcium 40 MG Oral Tablet *Reorder from [facility] for eRx and Interaction Alerts*, Taking aspirin 81 MG Delayed Release Oral Tablet ORAL , Notes to Pharmacist: aspirin 81 MG Delayed Release Oral TabletOriginal Medicationaspirin 81 MG Delayed Release Oral Tablet *Reorder from [facility] for eRx and Interaction Alerts*, Medication List [...] Edema: N o edema, bilateral. N eurologic: Rena Lara-Weinstin 5.07 monofilament a bsent sensorium to rearfoot [...] joint, right ankle and foot Notes: Continue: CHILKAT for right lower extremity * Immunizations: Immunization record has been reviewed and updated. * Follow Up: 2 Months (Reason: Wound care) * Billing Information: * Visit Code: 90302 Office Visit, Est Pt., Level 3. * Procedure Codes: * Sign off status: Completed true * Provider: Ethel Dillon DPM Date: 03/19/2023 Generated for Azam galarza/Navdeep/Marivel on: 0 05/25/2024 09:07 AM CDT History and Physical Notes * [...] no calor, no rubor. 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
--- OUTSIDE RECORDS SUMMARY | 2024-05-25 09:08 | XMS_ITS ---
Author Organization [facility] Address [address] [place], [place] [phone] Care Team Providers Care Pss Delivery Professional Name Role Phone LOBITO GÓMEZIC Unavailable [phone] AdanzulmaRaymond Unavailable Unavailable Allergies No Known Allergies REASON FOR VISIT The patient was shoveling snow and his wound must have broken open and formed a blood blisters under his right foot Medications Medication SIG (Take, Route, Frequency, Duration) Notes Start Date End Date Status Gabapentin 300 MG Oral Capsule ORAL gabapentin 300 MG Oral CapsuleOriginal Medicationgabapentin 300 MG Oral Capsule *Reorder from [email or web address] for eRx and Interaction Alerts* 10/14/2020 Active aspirin 81 MG Delayed Release Oral Tablet ORAL aspirin 81 MG Delayed Release Oral TabletOriginal Medicationaspirin 81 MG Delayed Release Oral Tablet *Reorder from [email or web address] for eRx and Interaction Alerts* 10/14/2020 Active Losartan Potassium 100 MG Oral Tablet ORAL losartan potassium 100 MG Oral TabletOriginal Medicationlosartan potassium 100 MG Oral Tablet *Reorder from [email or web address] for eRx and Interaction Alerts* 10/14/2020 Active Rosuvastatin Calcium 40 MG Oral Tablet ORAL rosuvastatin calcium 40 MG Oral TabletOriginal Medicationrosuvastatin calcium 40 MG Oral Tablet *Reorder from [email or web address] for eRx and Interaction Alerts* 10/14/2020 Active Encounters Encounter Location Date Provider Diagnosis [facility] [address] [place], [place] [id number] 03/20/2024 SYMONE WILMA Non-pressure chronic ulcer of [...] ankle and foot (ICD-10 - M14.671) Continue: [employer] [employer] for right lower extremity 03/20/2024 Charcot foot [...] joint, right ankle and foot Co ntinue: [place] for right lower extremity Next Appt Details Follow Up: 3 Months, Reason: Diabetic foot exam; sooner if problems return Provider Name:SYMONE DILLON, 01:10:00 PM, [address], [facility], [place], [place], [phone], Progress Notes * CATHY MARTIN FDOB:1960 (63 yo M)Acc No.[id number]:03/20/2024 Patient: CATHY CERNA Provider: Ethel Dillon DPM :1960 A ge:63 Y S ex:Male Date:03/20/2024 Address:[address] [place] [address] Subjective: * Chief Complaints: * T he [...] Medicationgabapentin 300 MG Oral Capsule *Reorder from [employer] for eRx and Interaction Alerts*Losartan Potassium 100 MG Oral Tablet ORAL , Notes to Pharmacist: losartan potassium 100 MG Oral TabletOriginal Medicationlosartan potassium 100 MG Oral Tablet *[facility] and Interaction Alert[facility]*Rosuvastatin Calcium 40 MG Oral Tablet ORAL , Notes to Pharmacist: rosuvastatin calcium 40 MG Oral TabletOriginal Medicationrosuvastatin calcium 40 MG Oral Tablet *[facility] for [facility] and Interaction Alerts*aspirin 81 MG Delayed Release Oral Tablet ORAL , Notes to Pharmacist: aspirin 81 MG Delayed Release Oral TabletOriginal Medicationaspirin 81 MG Delayed Release Oral Tablet *[facility] and Interaction Alerts*Medication List reviewed and reconciled with the patientTaking Gabapentin 300 MG Oral Capsule ORAL , Notes to Pharmacist: gabapentin 300 MG Oral CapsuleOriginal Medicationgabapentin 300 MG Oral Capsule *Reorder from [facility] for eRx and Interaction Alerts*Taking Losartan Potassium 100 MG Oral Tablet ORAL , Notes to Pharmacist: losartan potassium 100 MG Oral TabletOriginal Medicationlosartan potassium 100 MG Oral Tablet *Reorder from [facility] for eRx and Interaction Alerts*Taking Rosuvastatin Calcium 40 MG Oral Tablet ORAL , Notes to Pharmacist: rosuvastatin calcium 40 MG Oral TabletOriginal Medicationrosuvastatin calcium 40 MG Oral Tablet *Reorder from [facility] for eRx and Interaction Alerts*Taking aspirin 81 MG Delayed Release Oral Tablet ORAL , Notes to Pharmacist: aspirin 81 MG Delayed Release Oral TabletOriginal Medicationaspirin 81 MG Delayed Release Oral Tablet *Reorder from [facility] for eRx and Interaction Alerts*Medication List reviewed [...] Edema: N o edema, bilateral. N eurologic: Harleigh-Weinstin 5.07 monofilament a bsent sensorium to rearfoot [...] joint, right ankle and foot Notes: Continue: [employer] [place] for right lower extremity * Procedure Codes: * Follow Up: 3 Months (Reason: Diabetic foot exam; sooner if problems return) * Billing Information: * Visit Code: [id number] Office Visit, Est Pt., Level 3. * Procedure Codes: * INIST CLASS B Sign off status: Completed true * Provider: Ethel Dillon DPM Date: 03/20/2024 Generated for Azam galarza/Navdeep/Marivel on: 0 05/25/2024 09:08 AM CDT History and Physical Notes * [...] material. 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
--- OUTSIDE RECORDS SUMMARY | 2024-05-25 09:08 | XMS_ITS | Patient Health Record ---
Author Organization [facility] Address [address] [place], [place] [address] Care Team Providers Care Lunchroom Monitor Name Role Phone SYMONE DILLON Unavailable [phone] Ellemary Raymond Unavailable Unavailable Allergies No Known Allergies Reason For Referral No Information Medications Medication SIG (Take, Route, Frequency, Duration) Notes Start Date End Date Status Gabapentin 300 MG Oral Capsule ORAL gabapentin 300 MG Oral CapsuleOriginal Medicationgabapentin 300 MG Oral Capsule *Reorder from [employer] for eRx and Interaction Alerts* 10/14/2020 Active aspirin 81 MG Delayed Release Oral Tablet ORAL aspirin 81 MG Delayed Release Oral TabletOriginal Medicationaspirin 81 MG Delayed Release Oral Tablet *Reorder from [employer] for eRx and Interaction Alerts* 10/14/2020 Active Losartan Potassium 100 MG Oral Tablet ORAL losartan potassium 100 MG Oral TabletOriginal Medicationlosartan potassium 100 MG Oral Tablet *Reorder from [employer] for eRx and Interaction Alerts* 10/14/2020 Active Rosuvastatin Calcium 40 MG Oral Tablet ORAL rosuvastatin calcium 40 MG Oral TabletOriginal Medicationrosuvastatin calcium 40 MG Oral Tablet *Reorder from [employer] for eRx and Interaction Alerts* 10/14/2020 Active Vital Signs Height-cm 190.5 cm 01/17/2024 Weight-kg 113.4 kg 01/17/2024 Height 75 in 01/17/2024 Weight 250 lbs 01/17/2024 BMI 31.24 kg/m2 01/17/2024 Encounters Encounter Location Date Provider Diagnosis [facility] [facility] [address] [place] [phone] 08/16/2023 SYMONE SNOOK Charcot's joint, right ankle and foot M14.671 ; Non-pressure chronic ulcer of other part of right foot limited to breakdown of skin L97.511 ; Charcot foot due to diabetes mellitus E11.610 ; Type 2 diabetes mellitus with foot ulcer E11.621 and Pain in right foot M79.671 [facility] [place] [address] [address] [place] [id number] 09/06/2023 SYMONE SNOOK Charcot's joint, right ankle and foot M14.671 ; Non-pressure chronic ulcer of other part of right foot limited to breakdown of skin L97.511 ; Charcot foot due to diabetes mellitus E11.610 ; Type 2 diabetes mellitus with foot ulcer E11.621 and Pain in right foot M79.671 [facility] [place] [address] [place] [id number] 09/27/2023 SYMONE SNOOK Charcot's joint, right ankle and foot M14.671 ; Non-pressure chronic ulcer of other part of right foot limited to breakdown of skin L97.511 ; Charcot foot due to diabetes mellitus E11.610 ; Type 2 diabetes mellitus with foot ulcer E11.621 and Pain in right foot M79.671 [facility] [place] [address] [place] [id number] 10/25/2023 SYMONE SNOOK Charcot's joint, right ankle and foot M14.671 ; Non-pressure chronic ulcer of other part of right foot limited to breakdown of skin L97.511 ; Charcot foot due to diabetes mellitus E11.610 ; Type 2 diabetes mellitus with foot ulcer E11.621 and Pain in right foot M79.671 [facility] [place] [address] [place] [id number] 11/22/2023 SYMONE SNOOK Charcot's joint, right ankle and foot M14.671 ; Non-pressure chronic ulcer of other part of right foot limited to breakdown of skin L97.511 ; Charcot foot due to diabetes mellitus E11.610 ; Type 2 diabetes mellitus with foot ulcer E11.621 and Pain in right foot M79.671 [facility] [place] [address] [place] [id number] 12/20/2023 SYMONE SNOOK Charcot's joint, right ankle and foot M14.671 ; Non-pressure chronic ulcer of other part of right foot limited to breakdown of skin L97.511 ; Charcot foot due to diabetes mellitus E11.610 ; Type 2 diabetes mellitus with foot ulcer E11.621 and Pain in right foot M79.671 [facility] [address] [place] [id number] 01/17/2024 YSMONE SNOOK Charcot's joint, right ankle and foot M14.671 ; Non-pressure chronic ulcer of other part of right foot limited to breakdown of skin L97.511 ; Charcot foot due to diabetes mellitus E11.610 ; Type 2 diabetes mellitus with foot ulcer E11.621 and Pain in right foot M79.671 [facility] [address] [place] [id number] 03/20/2024 SYMONE SNOOK Non-pressure chronic ulcer of [...] ankle and foot (ICD-10 - M14.671) Order: [facility] for right lower extremity 09/06/2023 Non-pressure chronic [...] ankle and foot (ICD-10 - M14.671) Awaiting: [facility] for right lower extremity 09/27/2023 Non-pressure chronic [...] ankle and foot (ICD-10 - M14.671) Awaiting: [facility] for right lower extremity 10/25/2023 Non-pressure chronic [...] ankle and foot (ICD-10 - M14.671) Awaiting: [facility] for right lower extremity 11/22/2023 Non-pressure chronic [...] ankle and foot (ICD-10 - M14.671) Continue: [facility] for right lower extremity 12/20/2023 Non-pressure chronic [...] ankle and foot (ICD-10 - M14.671) Continue: [facility] for right lower extremity 01/17/2024 Non-pressure chronic [...] ankle and foot (ICD-10 - M14.671) Continue: [place] for right lower extremity 03/20/2024 Non-pressure chronic [...] ankle and foot (ICD-10 - M14.671) Continue: [place] for right lower extremity 01/17/2024 Charcot foot [...] 01:10:00 PM, [address], [place], [place], [phone], Insurance Providers Payer Name Payer Address Payer Phone Subscriber Number Group Number Insured Name Patient Relationship to Insured Coverage Start Date Coverage End Date Medicare Part B [place] [address] [place] [address] [id number] CATHY MARTIN Self - patient is the insured [employer] MEDICARE SUPPLEMENT [address] [address] [place] [address] [id number] CATHY MARTIN Self - patient is the insured
--- OUTSIDE RECORDS SUMMARY | 2024-05-25 09:08 | XMS_ITS | Encounter Summary ---
Author Organization [facility] Facility Care Team Providers Care Functional Architect Name Role Phone Raymond Matos MD Primary Care Provider [phone] Roxann Matos MD Primary Care Provider + Raymond Matos MD Unavailable Kyra Hein RN Unavailable Unavailab Roxann Mathews MD Primary Care Provider + Raymond Matos MD Primary Care Provider [phone] Encounter Details Date Type Department Care Team (Latest Contact Info) Description 04/26/2018 Orders Only [facility] CLINCONV ProviderMike MD [address] [place] [address] Social History Tobacco Use Types Packs/Day [...] on filedocumented in this encounter Care Teams Functional Architect Relationship Specialty Start Date End Date Raymond Matos MD [address] [place] [address] PCP - General 04/25/18 05/26/18 Roxann Matos MD [address] [place] [address] PCP - General 05/27/18 12/19/18 Roxann Matos MD [address] [facility] [facility] [address] [place] [address] PCP - General 12/20/18 01/24/19 Raymond Matos MD [address] [place] [address] PCP - General Internal Medicine 01/25/19 Raymond Matos MD [address] [place] [address] 05/27/18 Kyra Hein, RN Registered Nurse 11/17/18 05/06/21 documented as of this encounter
[2024-06-20 14:25] VITALS: BMI 26.9
--- NOTE | 2024-06-20 14:25 | WPDHOMESLEEP ---
Sleep Study - Home Unattended Date of Study: 05/25/24 Ordering Provider: Bob Guo MD Interpreting Provider: Alyssa Corrales, DO Home Sleep Study Type: Watch PAT Height: 1.88 m Weight: 95.254 kg Body Mass Index: 26.9 Neck Circumference (inches): 16 [place]: 1 Reason for Sleep Study Re-evaluation of sleep apnea after significant weight loss Sleep History The patient is 63-year-old male that had a sleep study ordered by his primary care physician for re-evaluation of sleep apnea after significant weight loss. The patient rarely awakens from sleep short of breath. He rarely awakens at night with heartburn, belching or cough. He occasionally has trouble sleeping when he has a cold. He rarely wakes up gasping for air throughout the night. He rarely has breathing problems at night observed by himself or others. He frequently sweats excessively at night. He occasionally has heart palpitations or irregular heartbeats during the night. He rarely falls asleep during the day but never while driving. He denies sleep paralysis, cataplexy and hypnagogic / hypnopompic hallucinations. He rarely has trouble at school or work due to sleepiness. He denies feeling afraid of going to sleep. He denies having nightmares. He rarely remembers his dreams. He frequently has thoughts racing through his mind. He rarely feels sad or depressed. He denies having anxiety. He frequently has muscular tension. He frequently notices parts of his body jerk. He frequently kicks during the night. He rarely has crawling and aching feelings in his legs. He rarely has leg pain during the night. He occasionally grinds his teeth during sleep but rarely awakens with morning jaw pain. He is occasionally bothered by pain during the but rarely awakened by pain during the night. He occasionally wakes up feeling stiff in the morning. He denies waking up with sore or achy muscles. He rarely wakes up with pain in the neck, spine or other joints. He goes to bed between 3:24 a.m. on both weekdays and weekends. It takes him 20-30 minutes to fall asleep. He wakes up 3-4 times throughout the night but is able to fall back asleep relatively quickly. He wakes up at 11 on both weekdays and weekends. He typically gets 6-7 hours of sleep per night. He will stay in bed for 5-10 minutes after waking up in the morning. He denies consuming any caffeinated beverages within 2 hours of bedtime. He denies engaging in physical exercise before bedtime. He denies reading before falling asleep. He will watch television before falling asleep. He denies taking naps in afternoon or the evening. He consumes 2 cups of caffeinated beverage per day. He denies tobacco, alcohol and recreational drug use. [facility] Past Medical History Medical History Hypogonadism SANDRA on CPAP Neuropathy Charcot's joint of right foot, non-diabetic Dyslipidemia Family History Family History Sibling Diabetes mellitus Family history of Alzheimer's disease, Onset Age: 60 Mother Patient's mother is , Onset Age: 53 Family history of lymphoma Social History Social History Smoking status: Never smoker Second hand tobacco smoke exposure: No Alcohol intake: current Alcohol use details: social Substance use: never Substance use type: does not use Lack of Transportation: No Lack of Food: Never True Current Housing: I Have Housing Concerned About Future Housing: No Difficulty Paying Gas/Electric Bills: No Difficulty Paying for Meds: No Currently Unemployed: No Education: Associate Degree Difficulty w/ Childcare or Family Care: No Gender identity (if verbalized by the patient): Male Spiritual care concerns: No Medications Home Medications ?Medication ?Instructions ?Recorded ?Confirmed ?Type aspirin 325 mg tablet 325 mg PO DAILY 05/16/19 07/24/22 History oxycodone-acetaminophen 5 mg-325 1 tablet PO Q6H PRN Pain 08/02/19 07/24/22 History mg tablet (Percocet) multivitamin (Daily Multi-Vitamin 1 tablet PO DAILY 07/16/20 07/24/22 History tablet) syringe with needle 3 mL 18 x 1 #100 ea 03/19/23 Rx 1/2 (BD Luer-Nica Syringe) methylnaltrexone 150 mg tablet 450 mg PO DAILY 04/28/23 History (Relistor) tirzepatide 5 mg/0.5 mL 5 mg (0.5 mL) subcut WEEKLY #2 mL 09/07/23 Rx subcutaneous pen injector (Mounjaro) testosterone cypionate 200 mg/mL 200 mg IM .every 2 weeks #10 mL 01/26/24 Rx intramuscular oil losartan 50 mg tablet 50 mg PO DAILY #90 tabs 04/19/24 Rx metoprolol succinate 25 mg 12.5 mg (1/2 x 25 mg) PO DAILY #45 04/19/24 Rx tablet,extended release 24 hr tabs (Toprol XL) zolpidem 10 mg tablet 10 mg PO QHS #30 tabs 05/04/24 Rx rosuvastatin 20 mg tablet 20 mg PO DAILY 90 days #90 tabs 05/08/24 Rx tirzepatide 7.5 mg/0.5 mL 7.5 mg (0.5 mL) subcut WEEKLY #2 mL 06/01/24 Rx subcutaneous pen injector (Mounjaro) tirzepatide 10 mg/0.5 mL 10 mg (0.5 mL) subcut WEEKLY #2 mL 06/12/24 Rx subcutaneous pen injector (Mounjaro) metformin 500 mg tablet,extended See Rx Instructions .Route 06/13/24 Rx release 24 hr .COMPLEX #90 tabs Sleep Procedure The sleep study was completed using [employer] a technically adequate device with seven channels: peripheral arterial tone, actigraphy, body position, snore, respiratory movement, pulse oximetry, sleep staging, and heart rate. Prior to using the device, the patient received verbal and written instructions for its application and was provided with the help desk phone number for additional telephonic instruction with 24-hour availability of qualified personnel to answer questions. The study was scored using CMS guidelines. Sleep Architecture The total recording time is 7 hrs, 29 min. The total sleep time is 6 hrs, 13 min. Sleep latency is 19 minutes. REM latency is 222 minutes. The patient had 10 episodes of waking. Sleep architecture shows 12.6% deep sleep, 80.0% light sleep, and (as % Total Sleep Time) showed NREM (Light 80.0%; Deep 12.6%), and a 7.4% stage REM. The patient spent 24.5% of total sleep time in the supine position. Sleep efficiency was 83.07. Respiratory Analysis The overall AHI (pAHI 4%:) is 6.1. The overall AHI (pAHI 3%:) is 27.3. The central AHI is 1.0. The AHI was N/A in NREM and N/A in REM sleep. The AHI was 27.0 in Supine and 27.5 in Non-supine sleep. Percent of Dayo Barrientos respirations is 0.0. Oximetry Data The oxygen desaturation index (NHI 4%:) is 5.6. The mean saturation is 94%, and the lowest saturation is 89%. Time spent with saturation < 88% is 0.0 minutes. Snoring Profile Snoring average intensity is 42 dB. The patient snored above 45 decibels for 68.1 minutes, 18.3% of sleep time. Cardiac Profile The average pulse rate is 54 beats per minutes. The lowest pulse rate is 37 bpm. The highest pulse rate reported is 86 bpm. Suspected Afib total duration is 6:10:28, (h:m:sec). The longest Afibevent duration is 1:14:58. Premature beats occur 3.0 per minute. Assessment and Plan Assessment and Plan (1) SANDRA on CPAP: Code(s): G47.33 - Obstructive sleep apnea (adult) (pediatric); Z99.89 - Dependence on other enabling machines and devices Status: Acute Assessment and Plan: The patient had an overall AHI of 6.1 with desaturation down to 89%. This is consistent with mild sleep apnea. Due to the patient's hypertension and atrial fibrillation, he should continue to use CPAP. If his CPAP machine is programmed to a set pressure, the pressure setting may need to be decreased due to the patient's weight loss. I will consider using an AutoPAP so the machine can adjust the pressure setting as the patient continues to lose weight. The patient's sleep history is somewhat suggestive of Restless Leg Syndrome. I recommend that the patient have a serum ferritin drawn for evaluation of iron deficiency anemia. If the patient has a serum ferritin less than 75 ng/mL, I recommend starting a daily iron supplement and a Vitamin C supplement for better absorption. If the serum ferritin is greater than 75 ng/mL, I recommend starting a dopamine agonist and titrating the dose until symptoms resolve. There are nonpharmacological methods to treat limb movements including daily exercise, stretching calf muscles before bed, avoiding excessive amounts of caffeine and alcohol, vitamin B supplementation, magnesium lotion massaged into legs before bed, and use of a weighted blanket. Data The data obtained during this sleep study is adequate for interpretation. Certification This sleep study has been reviewed by a board certified sleep medicine physician.
== END 2024-05-26 13:17 | disposition home or self-care (01) ==
LOC: ANHCSM 08:56
PROVIDERS: PCP Family Medicine; Visit Provider Family Medicine
DX: G47.33 Obstructive sleep apnea (adult) (pediatric) (principal); I10 Essential (primary) hypertension; Z99.89 Dependence on other enabling machines and devices
CPT/HCPCS: 95800

== ENCOUNTER 2024-11-14 10:04 | Outpatient (CLI) | payer MEDICARE, SELFPAY ==
--- OUTSIDE RECORDS SUMMARY | 2024-10-09 08:10 | XMS_ITS ---
Author Organization [facility] Address [address] [place], [place] [id number] Care Team Providers Care Bindery Machine Tender Name Role Phone SYMONE DILLON Unavailable [phone] Raymond Matos Unavailable Unavailable REASON FOR VISIT The patient has Diabetic Neuropathy with Charcot deformity as a result. He has a history of plantarulcerations on the right foot. He wears diabetic inserts and New Balance shoes for daily activity and a [place] for more involved activity Medications Medication SIG (Take, Route, Frequency, Duration) Notes Start Date End Date Status Gabapentin 300 MG Oral Capsule ORAL gabapentin 300 MG Oral CapsuleOriginal Medicationgabapentin 300 MG Oral Capsule *Reorder from [employer] for eRx and Interaction Alerts* 10/14/2020 Active Losartan Potassium 100 MG Oral Tablet ORAL losartan potassium 100 MG Oral TabletOriginal Medicationlosartan potassium 100 MG Oral Tablet *Reorder from [employer] for eRx and Interaction Alerts* 10/14/2020 Active Rosuvastatin Calcium 40 MG Oral Tablet ORAL rosuvastatin calcium 40 MG Oral TabletOriginal Medicationrosuvastatin calcium 40 MG Oral Tablet *Reorder from [employer] for eRx and Interaction Alerts* 10/14/2020 Active aspirin 81 MG Delayed Release Oral Tablet ORAL aspirin 81 MG Delayed Release Oral TabletOriginal Medicationaspirin 81 MG Delayed Release Oral Tablet *Reorder from [employer] for eRx and Interaction Alerts* 10/14/2020 Active Encounters Encounter Location Date Provider Diagnosis [facility] [address] [place], [place] [id number] 10/09/2024 SYMONE DILLON Charcot's joint, rig ht ankle and foot M14.671 ; Pain in right foot M79.671 and 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.49 Assessments Encounter Date Diagnosis (ICD Code) Assessment Notes Treatment Notes Treatment Clinical Notes Section Notes 10/09/2024 Charcot's joint, right ankle and foot (ICD-10 - M14.671) Continue: [place] for right lower extremity 10/09/2024 Pain in right foot (ICD-10 - M79.671) 10/09/2024 Type 2 diabetes mellitus with other diabetic neurological complication (ICD-10 - E11.49) Continue Diabetic Inserts or [employer] for daily use Plan Of Treatment Treatment Notes Assessment Notes Charcot's joint, right ankle and foot Co ntinue: [place] [employer] for right lower extremity Type 2 diabetes mellitus wit h other diabetic neurological complication Continue Diabetic Inserts or [employer] s for daily use Next Appt Details Follow Up: 4 Months, Reason: Diabetic Foot exam Provider Name:SYMONE DILLON, 01:10:00 PM, [address], [facility], [place], [place], [id number], Progress Notes * CATHY MARTIN FDOB:1960 (64 yo M)Acc No.[id number]:10/09/2024 Patient: CATHY CERNA Provider: Ethel Dillon DPM :1960 A ge:64 Y S ex:Male Date:10/09/2024 Address:[address] [place], [place] [id number] Subjective: * Chief Complaints: * 1 . The patient has Diabetic Neuropathy with Charcot deformity as a result. He has a history of plantar ulcerations on the right foot. He wears diabetic inserts and New Balance shoes for daily activity and a [place] for more involved activity. * HPI: H PI: [facility] for right foot wound check., Patient states their problem is, unchanged. No better, no worse and no new issues., MA: mae. * ROS: G eneral / Constitutional: Patient [...] burning/ tingling. ? * Medical History: * Social History: M igrated Social History: M igrated Social History: Alcohol intake : , History of tobacco use : , Smoking Status : Never used tobacco. * Medications: T aking Gabapentin 300 MG Oral Capsule ORAL , Notes to Pharmacist: gabapentin 300 MG Oral CapsuleOriginal Medicationgabapentin 300 MG Oral Capsule *Reorder from [facility] for eRx and Interaction Alerts*, Taking Losartan Potassium 100 MG Oral Tablet ORAL , Notes to Pharmacist: losartan potassium 100 MG Oral TabletOriginal Medicationlosartan potassium 100 MG Oral Tablet *Reorder from [facility] for eRx and Interaction Alerts*, Taking Rosuvastatin Calcium 40 MG Oral Tablet ORAL , Notes to Pharmacist: rosuvastatin calcium 40 MG Oral TabletOriginal Medicationrosuvastatin calcium 40 MG Oral Tablet *Reorder from [facility] for eRx and Interaction Alerts*, Taking aspirin 81 MG Delayed Release Oral Tablet ORAL , Notes to Pharmacist: aspirin 81 MG Delayed Release Oral TabletOriginal Medicationaspirin 81 MG Delayed Release Oral Tablet *Reorder from [facility] for eRx and Interaction Alerts*, Medication List reviewed and reconciled with the patient Objective: * Vitals: * Examination: C onstitutional: Constitutional T he patient is awake, alert, well developed, well groomed and well nourished.. D ermatologic: Ulcer: T here is no evidence of ulceration noted at this time. V ascular: Dorsalis pedis pulse: 2 /4, bilateral. Posterior tibial pulse: 1 /4, bilaterally. Capillary refill: l ess than 3 seconds. Edema: N o edema, bilateral. N eurologic: [place] 5.07 monofilament a bsent sensorium to rearfoot via 5.07g monofilament.. M usculoskeletal: Muscle Strength M uscle strength is 5/5 in regards to dorsiflexion, plantarflexion, inversion, and eversion in bilateral lower extremities. The right foot has rocker-bottom foot consistent with Charcot.. Assessment: * Assessment: 1. C harcot's joint, right ankle and foot - M14.671 (Primary) 2 . P ain in right foot - M79.671 3 . T ype 2 diabetes mellitus with other diabetic neurological complication - E11.49 Plan: * Treatment: 2. T ype 2 diabetes mellitus with other diabetic neurological complication Notes: Continue Diabetic Inserts or [employer] for daily use * Follow Up: 4 Months (Reason: Diabetic Foot exam) * Billing Information: * Visit Code: 05563 Office Visit, Est Pt., Level 3. * Procedure Codes: * Electronic signature of SYMONE DILLON DPM on 11/14/2024 at 10:51 AM CDT Sign off status: Pending * Provider: Ethel Dillon DPM Date: 0 10/09/2024 Generated for Azam galarza/Navdeep/Marivel on: 0 11/14/2024 10:51 AM CDT History and Physical Notes * HPI (History of Present Illness) Category Sub-Category Detail Notes Category Not es HPI Follow Up Visit Patient presents for follow up visit for right foot wound check., Patient states their problem is, unchanged. No better, no worse and no new issues., MA: mf Examination Category Sub-Category Detail Notes Category Not es Dermatologic Ulcer: There is no evid ence of ulceration noted at this time Neurologic [place] 5.07 monofilament absent sensorium to rearfoot via [...]
[2024-11-14 10:31] LABS: Hematocrit 44.0 % (42.0-52.0); Hemoglobin 14.7 g/dL (14.0-18.0); Immature Granulocyte Percent A 0.2 % (0-0.5); Lymphocytes Absolute Auto 1.00 K/mm3 (0.9-3.2); Mean Corpuscular HGB Conc 33.4 g/dl (32-36); Mean Corpuscular Hemoglobin 31.3 pg (26-34); Mean Corpuscular Volume 93.6 fl (80-100); Nucleated Red Blood Cells Absolute Auto 0.000 K/mm3 (0.0-0.012); Nucleated Red Blood Cells Perc 0.0 % (0.0-0.2); Platelet Count Result 203 k/mm3 (150-375); Red Blood Count 4.70 M/mm3 (4.6-6.20); White Blood Count 4.2 K/mm3 (4.5-10.0)
[2024-11-14 10:47] LABS: Hemoglobin A1C 5.4 % (<5.7)
[2024-11-14 10:51] LABS: MALB Creatinine Ratio 21.1 mg/g (0-30)
--- OUTSIDE RECORDS SUMMARY | 2024-11-14 10:52 | XMS_ITS | Clinical Summary ---
Author Organization [facility] Address [address] [place] [address] Care Team Providers Care Registered Dietitian Name Role Phone Raymond Matos MD Unavailable Osvaldo Nicolas MD Unavailable Lee Kaur NP Unavailable [phone] Bob Guo MD Primary Care Provider [phone] Allergies No known active allergies Medications losartan [...] as needed for pain 90 tablet 5 12/11/19 25 Active oxyCODONE-aceta minophen (PERCOCET) 5-325 mg per tabletIndicatio ns:Pain Take 1 tablet by mouth every 8 (eight) hours as needed for pain 90 tablet 5 11/11/19 25 Active Problems Problem Noted Date Diagnosed [...] Encounters Date Type Department Care Team Description 09/05/2024 12:48 PM CDT - 09/05/2024 11:59 PM CDT Hospital Encounter [facility] [address] [place] [address] Lee Kaur NP Right foot pain (Primary Dx); Charcot's joint of right foot; Long-term current use of opiate analgesic; Constipation due to opioid therapy Discharge Disposition: [...] Packs/Day Years Used Date Smoking Tobacco: Never Passive Smoke Exposure: Never Smokeless Tobacco: Never Alcohol Use Standard Drinks/Week Comments Yes 0 [...] Sign Reading Time Taken Comments Blood Pressure 151/89 09/05/2024 1:18 PM CDT Pulse 70 09/05/2024 1:18 PM CDT Temperature 36.3 C (97.4 F) 04/24/2020 11:51 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 Respiratory Rate 18 09/05/2024 1:18 PM CDT Oxygen Saturation 97% 09/05/2024 1:18 PM CDT Inhaled Oxygen Concentration - - Weight 125.2 kg (276 lb) 09/08/2021 11:28 AM CDT Height 188 cm (6' 2) 05/07/2021 11:59 AM CDT Body Mass Index [...] 2008 Well Visit 65+ 09/16/2023 Covid-19 Vaccine ( season) 2024, 04/18/2020 Influenza Vaccine (#1) 2024 Fall Risk Assessment 09/05/2025 09/05/2024 Insurance [employer] SIG [id number] MEDICARE [place] MEDICARE SUPPLEMENT Advance Directives For more information, please contact: [phone] Documents on File Type Date Recorded 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
--- OUTSIDE RECORDS SUMMARY | 2024-11-14 10:52 | XMS_ITS | Patient Health Record ---
Author Organization [facility] Address [address] [place], [place] [id number] Care Team Providers Care Rack Production Worker Name Role Phone SYMONE DILLON Unavailable [phone] Kellie Matosmsi Unavailable Unavailable Allergies No Known Allergies Reason For Referral No Information Medications Medication SIG (Take, Route, Frequency, Duration) Notes Start Date End Date Status Gabapentin 300 MG Oral Capsule ORAL gabapentin 300 MG Oral CapsuleOriginal Medicationgabapentin 300 MG Oral Capsule *Reorder from [employer] for eRx and Interaction Alerts* 10/14/2020 Active Losartan Potassium 100 MG Oral Tablet ORAL losartan potassium 100 MG Oral TabletOriginal Medicationlosartan potassium 100 MG Oral Tablet *Reorder from [employer] for eRx and Interaction Alerts* 10/14/2020 Active Rosuvastatin Calcium 40 MG Oral Tablet ORAL rosuvastatin calcium 40 MG Oral TabletOriginal Medicationrosuvastatin calcium 40 MG Oral Tablet *Reorder from [employer] for eRx and Interaction Alerts* 10/14/2020 Active aspirin 81 MG Delayed Release Oral Tablet ORAL aspirin 81 MG Delayed Release Oral TabletOriginal Medicationaspirin 81 MG Delayed Release Oral Tablet *Reorder from [employer] for eRx and Interaction Alerts* 10/14/2020 Active Immunizations Vaccine Route Administration Date Status Comme nts Pfizer-Biontech Covid-19 Vac cine 1st dose Unknown 04/18/2020 Administered Pfizer-Biontech Covid-19 Vac cine 1st dose Unknown 05/09/2020 Administered Vital Signs Height-cm 190.5 cm 06/12/2024 Weight-kg 113.4 kg 06/12/2024 Height 75 in 06/12/2024 Weight 250 lbs 06/12/2024 BMI 31.24 kg/m2 06/12/2024 Encounters Encounter Location Date Provider Diagnosis [facility] [address] [place] [address] [id number] 10/09/2024 SYMONE SNOOK Charcot's joint, rig ht ankle and foot M14.671 ; Pain in right foot M79.671 and 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.49 [facility] [address] [place] [address] [id number] 11/22/2023 SYMONE SNOOK Charcot's joint, rig ht ankle and foot M14.671 ; Non-pressure chronic ulcer of other part of right foot limited to breakdown of skin L97.511 ; Charcot foot due to diabetes mellitus E11.610 ; Type 2 diabetes mellitus with foot ulcer E11.621 and Pain in right foot M79.671 [facility] [address] [place] [address] [id number] 12/20/2023 SYMONE SNOOK Charcot's joint, rig ht ankle and foot M14.671 ; Non-pressure chronic ulcer of other part of right foot limited to breakdown of skin L97.511 ; Charcot foot due to diabetes mellitus E11.610 ; Type 2 diabetes mellitus with foot ulcer E11.621 and Pain in right foot M79.671 [facility] [address] [place] [address] [id number] 01/17/2024 SYMONE SNOOK Charcot's joint, rig ht ankle and foot M14.671 ; Non-pressure chronic ulcer of other part of right foot limited to breakdown of skin L97.511 ; Charcot foot due to diabetes mellitus E11.610 ; Type 2 diabetes mellitus with foot ulcer E11.621 and Pain in right foot M79.671 [facility] [address] [place] [address] [id number] 03/20/2024 SYMONE SNOOK Non-pressure chronic ulcer of other part of right foot limited to breakdown of skin L97.511 ; Charcot's joint, right ankle and foot M14.671 ; Charcot foot due to diabetes mellitus E11.610 ; Type 2 diabetes mellitus with foot ulcer E11.621 and Pain in right foot M79.671 [facility] [place] [address] [place], [place] [id number] 06/12/2024 SYMONE DILLON Non-pressure chronic ulcer of other part of right foot limited to breakdown of skin L97.511 ; Charcot's joint, right ankle and foot M14.671 and Pain in right foot M79.671 Assessments Encounter Date Diagnosis (ICD Code) Assessment Notes Treatment Notes Treatment Clinical Notes Section Notes 11/22/2023 Non-pressure chronic ulcer of other part of right foot limited to breakdown of skin (ICD-10 - L97.511) Ulcer Debridement: Using a 15 blade, the ulcer was sharply debrided down to bleeding tissue. The nonviable tissue was sharply debrided down to the layer of subcutaneous tissue. A dry sterile dressing was applied. 11/22/2023 Charcot's joint, right ankle and foot (ICD-10 - M14.671) Continue: KAKTOVIK for right lower extremity 12/20/2023 Non-pressure chronic [...] ankle and foot (ICD-10 - M14.671) Continue: KAKTOVIK for right lower extremity 01/17/2024 Non-pressure chronic [...] ankle and foot (ICD-10 - M14.671) Continue: KAKTOVIK for right lower extremity 03/20/2024 Non-pressure chronic [...] ankle and foot (ICD-10 - M14.671) Continue: KAKTOVIK for right lower extremity 06/12/2024 Non-pressure chronic ulcer of other part of right foot limited to breakdown of skin (ICD-10 - L97.511) Ulcer Resolved: The nonviable tissue from the ulcer site was debrided down to normal appearing tissue. Advised patient to monitor this area for recurrence. Patient may discontinue local wound care. 06/12/2024 Charcot's joint, right ankle and foot (ICD-10 - M14.671) Continue: KAKTOVIK for right lower extremity 10/09/2024 Charcot's joint, right ankle and foot (ICD-10 - M14.671) Continue: KAKTOVIK for right lower extremity 10/09/2024 Pain in right foot (ICD-10 - M79.671) 03/20/2024 Charcot foot due to diabetes mellitus (ICD-10 - E11.610) 06/12/2024 Pain in right foot (ICD-10 - M79.671) 10/09/2024 Type 2 diabetes mellitus with other diabetic neurological complication (ICD-10 - E11.49) Continue Diabetic Inserts or CloudWalkers for daily use 01/17/2024 Charcot foot due to diabetes mellitus (ICD-10 - E11.610) 12/20/2023 Charcot foot due to diabetes mellitus (ICD-10 - E11.610) 11/22/2023 Charcot foot due to diabetes mellitus (ICD-10 - E11.610) 11/22/2023 Type 2 diabetes mellitus with foot [...] foot (ICD-10 - M79.671) Plan Of Treatment Next Appt Details Provider Name:SYMONE DILLON, 01:10:00 PM, [address], [place], [place], [id number], Insurance Providers Payer Name Payer Address Payer Phone Subscriber Number Group Number Insured Name Patient Relationship to Insured Coverage Start Date Coverage End Date Medicare Part B [place] [address] [place] [address] [id number] CATHY MARTIN Self - patient is the insured [employer] SUPPLEMENT [address] [address] [place] [phone] [id number] CATHY MARTIN Self - patient is the insured
--- OUTSIDE RECORDS SUMMARY | 2024-11-14 10:52 | XMS_ITS | Encounter Summary ---
Author Organization [facility] Facility Care Team Providers Care Review Analyst Name Role Phone Raymond Matos MD Primary Care Provider [phone] Rxoann Matos MD Primary Care Provider + Raymond Matos MD Unavailable Kyra Hein RN Unavailable Unavailab Roxann Mathews MD Primary Care Provider + Raymond Matos MD Primary Care Provider [phone] Osvaldo Nicolas MD Unavailable Lee Kaur NP Unavailable [phone] Bob Guo MD Primary Care Provider [phone] Encounter Details Date Type Department Care Team (Latest Contact Info) Description 04/26/2018 Orders Only [facility] CLINCONV ProviderMike MD [address] [place] [address] Social History Tobacco Use Types Packs/Day [...] on filedocumented in this encounter Care Teams Review Analyst Relationship Specialty Start Date End Date Raymond Matos MD [address] [address] PCP - General 04/25/18 05/26/18 Roxann Matos MD [address] [address] PCP - General 05/27/18 12/19/18 [place] [address] [place] [address] [address] PCP - General 12/20/18 01/24/19 Raymond Matos MD [address] [address] PCP - General Internal Medicine 01/25/19 09/04/24 Bob Guo MD [address] [place] [address] PCP - General Family Practice 09/05/24 Raymond Matos MD [address] [address] 05/27/18 Kyra Hein, RN Registered Nurse 11/17/18 05/06/21 [place] [address] [facility] [place] [address] Consulting Physician Pain Management 09/05/24 [place] [address] [address] [place] [address] Nurse Practitioner Pain Management 09/05/24 documented as of this encounter
--- OUTSIDE RECORDS SUMMARY | 2024-11-14 10:52 | XMS_ITS | Encounter Summary ---
Author Organization [facility] Facility Care Team Providers Care Button And Buckle Maker Name Role Phone Raymond Matos MD Primary Care Provider [phone] Roxann Matos MD Primary Care Provider + Raymond Matos MD Unavailable Kyra Hein RN Unavailable Unavailab Roxann Mathews MD Primary Care Provider + Raymond Matos MD Primary Care Provider [phone] Osvaldo Nicolas MD Unavailable Lee Kaur NP Unavailable [phone] Bob Guo MD Primary Care Provider [phone] Encounter Details Date Type Department Care Team (Latest Contact Info) Description 05/12/2018 Orders Only [facility] CLINCONV ProviderMike MD [address] [place] [address] Social History Tobacco Use Types Packs/Day [...] on filedocumented in this encounter Care Teams Button And Buckle Maker Relationship Specialty Start Date End Date Raymond Matos MD [address] [place] [address] PCP - General 04/25/18 05/26/18 Roxann Matos MD [address] [address] PCP - General 05/27/18 12/19/18 Roxann Matos MD [address] [facility] [address] [place] [address] PCP - General 12/20/18 01/24/19 Raymond Matos MD [address] [place] [address] PCP - General Internal Medicine 01/25/19 09/04/24 Bob Guo MD [address] [place] [address] PCP - General Family Practice 09/05/24 Raymond Matos MD [address] [facility] [address] [place] [address] 05/27/18 Kyra Hein, RN Registered Nurse 11/17/18 05/06/21 [place] [address] [address] [facility] [place] [address] Consulting Physician Pain Management 09/05/24 [place] [address] [address] [place], [place] [id number] Nurse Practitioner Pain Management 09/05/24 documented as of this encounter
--- OUTSIDE RECORDS SUMMARY | 2024-11-14 10:52 | XMS_ITS | Clinical Summary ---
Author Organization [facility] Address [address] [place] [address] Care Team Providers Care Loading Checker Name Role Phone Loi Krishna MD Primary Care Provider [phone] Source Comments [facility] Affiliates and Associated Physician Practices is amultiple site organization consisting of ambulatory clinics and hospital sitesin [place], [place], [place] and [place]. This disclosure is being madepursuant to the Care Everywhere program and may not contain all information available regarding this patient. Last updated 17.[facility] [employer] Allergies No known active allergies Social History Tobacco Use Types Packs/Day Years Used Date Smoking Tobacco: Never Smokeless Tobacco: Never Tobacco Cessation:Counseling Given: Not Answered Alcohol Use Standard Drinks/Week Comments Not Currently 0 (1 standard drink = 0.6 oz pur e alcohol) Sex and Gender Information Value Date Recorded Sex Assigned at Not on file Legal Sex Male 12:04 PM CDT Gender Identity Not on file Sexual Orientation Not on file Last Filed Vital Signs Vital Sign Reading Time Taken Comments Blood Pressure - - Pulse - - Temperature - - Respiratory Rate - - Oxygen Saturation - - Inhaled Oxygen Concentration - - Weight 120.2 kg (265 lb) 12/10/2021 3:27 PM CDT Height 190.5 cm (6' 3) 12/10/2021 3:27 PM CDT Body Mass Index [...] COLON CA SCREENING 1958 LIPID TESTING 1958 HEPATITIS C SCREENING 09/10/1976 DTAP/TDAP/TD VACCINES (1 - Tdap) 1977 PNEUMOCOCCAL VACCINE 50+ (1 of 1 - PCV) 2008 ZOSTER VACCINE (1 of 2) 2008 SCREENING FOR DIABETES 12/10/2021 DEPRESSION SCREENING 02/16/2024 COVID-19 VACCINE (3 - 2024-2 6 season) 2024 05/09/2020, 04/18/2020 INFLUENZA VACCINE (#1) 2024 Respiratory Syncytial Virus (RSV) Vaccine Pt: [...] patient's age to complete this topic Insurance A[employer] AETNA MEDICAID - OUT OF STATE Care Teams Loading Checker Relationship Specialty Start Date End Date Loi Krishna MD [address] [place] [address] PCP - General 11/18/21
[2024-11-14 10:55] LABS: Alanine Aminotransferase 64 U/L (6-50); Albumin Level 4.4 g/dL (3.5-5.1); Alkaline Phosphatase 90 U/L (38-126); Anion Gap 8 mmol/L (4-12); Aspartate Amino Transferase 65 U/L (17-59); Bilirubin,Total 0.9 mg/dL (0.2-1.3); Blood Urea Nitrogen 6 mg/dL (9-20); Calcium 9.2 mg/dL (8.4-10.2); Carbon Dioxide 26 mmol/L (22-30); Chloride 105 mmol/L (98-107); Cholesterol 124 mg/dL (0-200); Estimated Glomerular Filt Rate > 60; Glucose 93 mg/dL (65-110); HDL Direct 38 mg/dL; Potassium 4.1 mmol/L (3.4-5.0); Sodium 139 mmol/L (137-145); Total Protein 7.9 g/dL (6.3-8.2); Triglycerides 82 mg/dL (<150)
[2024-11-18 21:07] LABS: Estradiol, Sensitive 18.6 pg/mL (8.0-35.0)
== END 2024-11-14 10:05 | disposition home or self-care (01) ==
PROVIDERS: PCP Family Medicine; Visit Provider Family Medicine
DX: I48.91 Unspecified atrial fibrillation (principal); E11.9 Type 2 diabetes mellitus without complications; I10 Essential (primary) hypertension; E78.5 Hyperlipidemia, unspecified; R79.89 Other specified abnormal findings of blood chemistry; E66.09 Other obesity due to excess calories; Z68.31 Body mass index [BMI] 31.0-31.9, adult
CPT/HCPCS: 36415; 80053; 80061; 82043; 82670; 83036; 85025